=== PATIENT | female | born 1950 | race Caucasian/White ===

== ENCOUNTER → 2018-05-12 13:45 | Outpatient (CLI) | payer MEDICARE, OTHER, SELFPAY | PROVIDERS: PCP Nurse Practitioner Family; Visit Provider Nurse Practitioner Family | DX: M81.0 Age-related osteoporosis without current pathological fracture (principal); Z78.0 Asymptomatic menopausal state; F17.200 Nicotine dependence, unspecified, uncomplicated | CPT/HCPCS: 77080 ==

== ENCOUNTER → 2018-12-29 11:34 | Outpatient (CLI) | payer OTHER, MEDICARE, SELFPAY ==
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
== END ==
PROVIDERS: PCP Nurse Practitioner Family; Visit Provider Internal Medicine
DX: R51 Headache (principal)
CPT/HCPCS: 70450

== ENCOUNTER → 2019-04-08 14:28 | Outpatient (CLI) | payer MEDICARE, OTHER, SELFPAY ==
--- NOTE | 2019-04-08 | DI.MG.S_ITS ---
BILATERAL DIGITAL SCREENING MAMMOGRAM 3D/2D WITH CAD: 04/08/2019 CLINICAL: Routine screening. Comparison is made to exams dated: 02/18/2017 mammogram - [facility] and 02/16/2013 mammogram - [facility]. The tissue of both breasts is heterogeneously dense. This may lower the sensitivity of mammography. Current study was also evaluated with a Computer Aided Detection (CAD) system. No significant masses, calcifications, or other findings are seen in either breast. There has been no significant interval change. IMPRESSION: NEGATIVE There is no mammographic evidence of malignancy. A 1 year screening mammogram is recommended. This exam was interpreted at Station ID: [id number]. NOTE: For mammograms, a report in lay terms will be sent to the patient. Approximately 15% of breast malignancies will not be visualized mammographically. In the management of a palpable breast mass, a negative mammogram must not discourage biopsy of a clinically suspicious lesion. Electronically Signed By: Vincent mojica/anish:04/08/2019 23:01:38 letter sent: Normal Exam ACR BI-RADS Category 1: Negative 3341F
== END ==
PROVIDERS: PCP Nurse Practitioner Family; Visit Provider Nurse Practitioner Family
DX: Z12.31 Encounter for screening mammogram for malignant neoplasm of breast (principal); M81.0 Age-related osteoporosis without current pathological fracture; Z78.0 Asymptomatic menopausal state; F17.200 Nicotine dependence, unspecified, uncomplicated; Z82.62 Family history of osteoporosis
CPT/HCPCS: 77063; 77067; 77080

== ENCOUNTER 2020-05-27 10:37 | Inpatient (IN) | payer MEDICARE, OTHER, SELFPAY ==
[2020-05-27] VITALS (19 sets, daily range): BP systolic 102–148; BP diastolic 56–74; PULSE 71–99; RESP 16–20; TEMP 36.4–36.8; O2SAT 86–99; BMI 19.5
--- NOTE | 2020-05-27 11:07 | ED_ITS ---
HPI - General Adult General Chief complaint: Fall Stated complaint: GLF Time Seen by Provider: 05/27/20 11:07 History of Present Illness HPI narrative: 69-year-old woman with a history of osteoporosis, osteoarthritis, scoliosis and consequent difficulties with gait and mobility. She continues to smoke. She stumbled over her dog's bed this morning tripped landing on her right hip and has been unable to stand and having significant hip pain since. Brought in by medics. Right leg is slightly foreshortened and externally rotated. She did not hit her head in complains of no neck pain. She very clearly describes a mechanical fall with no preceding syncope, palpitations and no recent fevers, chills, vomiting, diarrhea. She reports her usual daily smoker's cough that has not particularly changed and no lower extremity edema or orthopnea. Related Data Allergies Allergy/AdvReac Type Severity Reaction Status Date / Time No Known Drug Allergies Allergy Verified 05/27/20 13:25 Review of Systems Review of Systems Narrative: Remainder of review of systems including constitutional, ENT, cardiovascular, respiratory, GI, , musculoskeletal, skin, neurologic and psychiatric systems reviewed and are unremarkable except as noted in HPI. Patient History Medical History Osteoarthritis Osteoporosis Scoliosis Smoker Social History Smoking Status: Current every day smoker Exam Narrative Exam Narrative: General: Frail woman in no acute distress as long as she is not moving. Any movement of the right hip causes severe pain. Able to give a complete and coherent history. HEENT: Moist mucous membranes, normal sclera with reactive pupils, Neck: No JVD, supple Respiratory: Lungs are clear to auscultation, no wheezing no rales no rhonchi. Full and symmetrical air movement Cardiac: Regular rate and rhythm no murmurs no bruits Abdomen: Soft nontender good bowel tones, no flank pain Skin: Warm and dry, no rashes Neurologic: Grossly neurologically intact with no obvious asymmetries or abnormalities Extremities: No trauma, well perfused Psych: Cooperative, appropriate insight and affect Initial Vital Signs Initial Vital Signs: Vital Signs Pulse Rate 91 H 05/27/20 10:41 Blood Pressure 130/62 05/27/20 10:41 Pulse Oximetry 95 05/27/20 10:41 Course Orders Ordered: ED Orders 05/27/20 11:13 XR hip w pel if done RT 2V Stat 05/27/20 11:56 XR chest 1V Stat 05/27/20 12:13 EKG-12 Lead Stat 05/27/20 12:40 COVID19 Stat 05/27/20 13:14 Complete Blood Count AUTO DIFF Stat Comprehensive Metabolic Panel Stat Troponin I Stat 05/27/20 14:15 CT pelvis wo con Stat Hydromorphone HCl (Hydromorphone 0.5 Mg Inj) 0.5 mg IV Q15MIN PRN PRN Reason: Pain, Last Admin: 05/27/20 15:41 Dose: 0.5 mg Documented by: Admin: 05/27/20 13:26 Dose: 0.5 mg Documented by: Admin: 05/27/20 12:31 Dose: 0.5 mg Documented by: CHANDU Sodium Chloride (Normal Saline 0.9%) 1,000 mls @ 150 mls/hr IV CONT AMY Last Infusion: 05/27/20 13:17 Dose: 150 mls/hr Documented by: Infusion: 05/27/20 12:44 Dose: 0 mls/hr Documented by: Admin: 05/27/20 12:30 Dose: 150 mls/hr Documented by: CHANDU Discontinued Medications Ondansetron HCl (Ondansetron 4 Mg/2 Ml Inj) 4 mg IV NOW ONE Stop: 05/27/20 11:56 Last Admin: 05/27/20 12:31 Dose: 4 mg Documented by: CHANDU Vital Signs Vital signs: Vital Signs - 8 hr 05/27/20 10:41 05/27/20 10:59 05/27/20 11:00 Temperature 98.3 F Pulse Rate 91 H 89 71 Respiratory Rate 16 Blood Pressure 130/62 130/62 Pulse Oximetry 95 97 98 05/27/20 11:30 05/27/20 12:00 05/27/20 12:26 Temperature Pulse Rate 77 81 80 Respiratory Rate Blood Pressure 111/58 L Pulse Oximetry 91 86 L 97 05/27/20 12:30 05/27/20 13:01 05/27/20 13:14 Temperature Pulse Rate 83 99 H 92 H Respiratory Rate Blood Pressure 102/57 L 117/68 Pulse Oximetry 99 98 98 05/27/20 13:30 05/27/20 14:00 12/13/20 14:30 Temperature Pulse Rate 89 83 78 Respiratory Rate Blood Pressure 125/59 L 112/56 L 128/69 Pulse Oximetry 98 96 97 05/27/20 15:00 Temperature Pulse Rate 90 Respiratory Rate Blood Pressure Pulse Oximetry 92 Medical Decision Making Medical Records Medical records reviewed: Yes I reviewed the patient's medical records. Lab Data Lab results reviewed: Yes I reviewed the patient's lab results. Result diagrams: 05/27/20 13:14 05/27/20 13:14 Labs: Lab Results 05/27/20 05/27/20 05/27/20 Range/Units 12:40 13:14 13:14 WBC 9.6 (4.5-11.0) X10^3/uL RBC 4.19 (4.0-5.2) X10^6/uL Hgb 14.3 (12.0-16.0) g/dL Hct 42.0 (36-46) % MCV 100.3 H (80-100) fL MCH 34.2 H (26-34) PG MCHC 34.1 (30-36) % RDW 14.8 (11.6-14.8) % Plt Count 231 (150-400) X10^3/uL Neut % (Auto) 78.2 H (50-75) % Lymph % (Auto) 10.8 L (25-40) % [place] % (Auto) 10.3 (3-14) % Eos % (Auto) 0.1 L (2-4) % Baso % (Auto) 0.6 (0-2) % Neut # (Auto) 7500 H (4410-1435) /uL Lymph # (Auto) 1000 L (3366-7334) /uL [place] # (Auto) 1000 H (0-900) /uL Eos # (Auto) 0 (0-450) /uL Baso # (Auto) 100 (0-100) /uL Sodium 132 L (137-145) mmol/L Potassium 4.1 (3.4-5.1) mmol/L Chloride 100 (98-107) mmol/L Carbon Dioxide 23 (22-32) mmol/L BUN 14 (7-17) mg/dL Creatinine 0.52 (0.52-1.04) mg/dL Estimated GFR > 60.0 (>60) mL/min BUN/Creatinine Ratio 26.9 H (6-22) Glucose 74 L (80-110) mg/dL Calcium 9.2 (8.4-10.2) mg/dL Total Bilirubin 0.5 (0.2-1.3) mg/dL AST 36 (14-36) IU/L ALT 21 (<35) IU/L Alkaline Phosphatase 82 (38-126) U/L Troponin I < 0.012 (0.01-0.034) ng/mL Total Protein 6.8 (6.3-8.2) g/dL Albumin 4.1 (3.5-5.0) g/dL Globulin 2.7 (1.7-4.1) g/dL Albumin/Globulin Ratio 1.5 (1.0-2.8) COVID-19 PCR Negative (Negative) Point of Care Testing Glucose POC 60 Point of care testing: Point of Care Testing Glucose POC 60 Imaging Data X-ray hip: Radiologist's Impression: FINDINGS: Bones: No fractures identified. No dislocations. Pelvic ring appears intact. No suspicious bony lesions. Soft tissues: The visualized bowel gas pattern is normal. No suspicious soft tissue calcifications. Suture material in the right lower quadrant. IMPRESSION: No fracture identified. No dislocation. If concern for occult fracture consider CT pelvis for further evaluation. Dictated by: Adrian Barahona M.D. on 05/27/2020 at 12:18 Chest x-ray: Radiologist's Impression: FINDINGS: Surgical changes and devices: None. Lungs and pleura: Minimal streaky opacity in the left mid lung field which is likely atelectasis or scarring. No pleural effusions or pneumothorax. Mediastinum: Mediastinal contours are tortuous, unchanged. Heart size is within normal limits. Bones and chest wall: No suspicious bony lesions. Scoliosis. Overlying soft tissues appear unremarkable. IMPRESSION: No significant acute airspace opacity identified. Dictated by: Adrian Barahona M.D. on 05/27/2020 at 12:16 CT pelvis: Radiologist's Impression: [address] [id number] Scan ReportSigned Patient: Cindy Elmore LMR#: [id number]: 3Acct:[id number]/Sex: 69 / FDate of Service: 05/27/20Loc: EDAccession Number: [id number] Procedure: CT pelvis wo con Ordering Provider: Bere Skinner MD PROCEDURE: CT PEL WO CON INDICATIONS: suspected R hip fracture TECHNIQUE: Noncontrast 3 mm axial sections acquired through the bony pelvis, with coronal and sagittal reformatting. COMPARISON: [facility], RG, CT ABDOMEN/PELVIS W/WO CONTRAST, 08/09/2001, 15:01. [facility], MR, L-SPINE WITHOUT CONTRAST, 03/27/2017, 14:07. [facility], CR, XR HIP W PEL IF DONE RT 2V, 05/27/2020, 12:39. FINDINGS: Image quality: Excellent. Bones: Bones appear osteopenic. Nondisplaced right intertrochanteric fracture. No additional fractures seen. No hip dislocation. Mild hip DJD. Soft tissues: Mild soft contusion contusion at the right trochanteric region. No large hematoma. Right hip joint effusion. Hepatic steatosis. Precaval cystic structure with rim calcification measuring 2.1 x 2 cm. Cystic structure in the right pelvic sidewall with peripheral calcification measuring 2.3 x 1.9 cm. Moderate calcified atherosclerotic plaque. Appendix is surgically absent. Diverticulosis. No free fluid. Distended urinary bladder. IMPRESSION: 1. Nondisplaced right intertrochanteric fracture. 2. Small soft tissue contusion at the right hip. 3. Indeterminate small cystic structures with rim calcification at the retroperitoneum and right pelvic sidewall. -this could be further evaluated with abdomen pelvis with IV contrast. 4. No free fluid in the pelvis. 5. Hepatic steatosis. Dictated by: Adrian Barahona M.D. on 05/27/2020 at 14:50 ECG Data Attestation: I personally reviewed and interpreted this ECG as follows: Interpretation: Sinus rhythm at a rate of 77 normal intervals normal axis No acute STT wave changes MDM Narrative Medical decision making narrative: 69-year-old woman with osteoporosis and presumed COPD with her long smoking history presents after mechanical fall jyotsna ding on her right hip with severe pain. Initial x-ray does not reveal the nondisplaced right intertrochanteric fracture that seen on CT scan and it is completely with her clinical presentation. She is COVID negative the remainder of her preop workup is unremarkable. Care is reviewed with Dr. Escobar will be the admitting doctor given the concerns for her possible postoperative pulmonary complications and frail overall medical status. Dr. Dooley is consulted and requested the patient be NPO after midnight in anticipation of probable surgical repair tomorrow Findings and plan reviewed with patient. Questions are answered. She is safe for transfer to the floor Discharge Plan Departure Patient Disposition: Admitted As Inpatient Clinical Impression: Smoker Closed hip fracture Qualifiers: Encounter type: initial encounter Laterality: right Qualified Code(s): S72.001A - Fracture of unspecified part of neck of right femur, initial encounter for closed fracture Osteoporosis Qualifiers: Osteoporosis type: unspecified Presence of current pathological fracture: with current pathological fracture Encounter type: initial encounter Qualified Code(s): M80.00XA - Age-related osteoporosis with current pathological fracture, unspecified site, initial encounter for fracture
--- NOTE | 2020-05-27 11:13 | DI.RAD.S_ITS ---
PROCEDURE: XR HIP W PEL IF DONE RT 2V INDICATIONS: fall TECHNIQUE: AP pelvis x2 with lateral view(s) of the right hip(s). COMPARISON: [facility], , CT ABDOMEN/PELVIS W/WO CONTRAST, 08/09/2001, 15:01. FINDINGS: Bones: No fractures identified. No dislocations. Pelvic ring appears intact. No suspicious bony lesions. Soft tissues: The visualized bowel gas pattern is normal. No suspicious soft tissue calcifications. Suture material in the right lower quadrant. IMPRESSION: No fracture identified. No dislocation. If concern for occult fracture consider CT pelvis for further evaluation. Dictated by: Adrian Barahona M.D. on 05/27/2020 at 12:18 Approved by: Adrian Barahona M.D. on 05/27/2020 at 12:21
--- NOTE | 2020-05-27 11:56 | DI.RAD.S_ITS ---
PROCEDURE: XR CHEST 1V INDICATIONS: preop TECHNIQUE: One view of the chest was acquired. COMPARISON: [facility], , CHEST 2 VIEW, 02/14/2014, 19:53. FINDINGS: Surgical changes and devices: None. Lungs and pleura: Minimal streaky opacity in the left mid lung field which is likely atelectasis or scarring. No pleural effusions or pneumothorax. Mediastinum: Mediastinal contours are tortuous, unchanged. Heart size is within normal limits. Bones and chest wall: No suspicious bony lesions. Scoliosis. Overlying soft tissues appear unremarkable. IMPRESSION: No significant acute airspace opacity identified. Dictated by: Adrian Barahona M.D. on 05/27/2020 at 12:16 Approved by: Adrian Barahona M.D. on 05/27/2020 at 12:18
[2020-05-27] MEDS: SODIUM CHLORIDE 0.9% 1,000 ML 150 ML IV (12:30)
[2020-05-27] MEDS: HYDROMORPHONE 0.5 MG INJ IV ×7 (12:31→20:55)
[2020-05-27] MEDS: ONDANSETRON 4 MG/2 ML INJ IV (12:31)
[2020-05-27 13:30] LABS: COVID19 -Nasal RAPID Negative (Negative)
[2020-05-27 13:35] LABS: Add Manual Diff / Slide Review NO; Basophils Absolute Auto 100 /uL (0-100); Basophils Percent Auto 0.6 % (0-2); Eosinophils Absolute Auto 0 /uL (0-450); Eosinophils Percent Auto 0.1 % (2-4); Hemoglobin 14.3 g/dL (12.0-16.0); Lymphocytes Absolute Auto 1000 /uL (1100-4500); Lymphocytes Percent Auto 10.8 % (25-40); Mean Corpuscular HGB Conc 34.1 % (30-36); Mean Corpuscular Hemoglobin 34.2 PG (26-34); Mean Corpuscular Volume 100.3 fL (80-100); Monocytes Absolute Auto 1000 /uL (0-900); Monocytes Percent Auto 10.3 % (3-14); Neutrophils Absolute Auto 7500 /uL (1500-7000); Neutrophils Percent Auto 78.2 % (50-75); Platelet Count 231 X10^3/uL (150-400); Red Blood Cell Count 4.19 X10^6/uL (4.0-5.2); Red Cell Distribution Width 14.8 % (11.6-14.8); White Blood Cell Count 9.6 X10^3/uL (4.5-11.0)
[2020-05-27 13:49] LABS: Alanine Aminotransferase 21 IU/L (<35); Albumin 4.1 g/dL (3.5-5.0); Albumin Globulin Ratio 1.5 (1.0-2.8); Alkaline Phosphatase 82 U/L (38-126); Aspartate Aminotransferase 36 IU/L (14-36); BUN Creatinine Ratio 26.9 (6-22); Bilirubin Total 0.5 mg/dL (0.2-1.3); Blood Urea Nitrogen 14 mg/dL (7-17); Calcium 9.2 mg/dL (8.4-10.2); Carbon Dioxide 23 mmol/L (22-32); Chloride 100 mmol/L (98-107); Estimated Glomerular Filt Rate > 60.0 mL/min (>60); Globulin 2.7 g/dL (1.7-4.1); Glucose 74 mg/dL (80-110); HEMOLYSIS < 15 (0-50); Potassium 4.1 mmol/L (3.4-5.1); Sodium 132 mmol/L (137-145); Total Protein 6.8 g/dL (6.3-8.2)
[2020-05-27 14:00] LABS: Troponin I < 0.012 ng/mL (0.01-0.034)
--- NOTE | 2020-05-27 14:15 | DI.CT.S_ITS ---
PROCEDURE: CT PEL WO CON INDICATIONS: suspected R hip fracture TECHNIQUE: Noncontrast 3 mm axial sections acquired through the bony pelvis, with coronal and sagittal reformatting. COMPARISON: [facility], RG, CT ABDOMEN/PELVIS W/WO CONTRAST, 08/09/2001, 15:01. [facility], MR, L-SPINE WITHOUT CONTRAST, 03/27/2017, 14:07. [facility], CR, XR HIP W PEL IF DONE RT 2V, 05/27/2020, 12:39. FINDINGS: Image quality: Excellent. Bones: Bones appear osteopenic. Nondisplaced right intertrochanteric fracture. No additional fractures seen. No hip dislocation. Mild hip DJD. Soft tissues: Mild soft contusion contusion at the right trochanteric region. No large hematoma. Right hip joint effusion. Hepatic steatosis. Precaval cystic structure with rim calcification measuring 2.1 x 2 cm. Cystic structure in the right pelvic sidewall with peripheral calcification measuring 2.3 x 1.9 cm. Moderate calcified atherosclerotic plaque. Appendix is surgically absent. Diverticulosis. No free fluid. Distended urinary bladder. IMPRESSION: 1. Nondisplaced right intertrochanteric fracture. 2. Small soft tissue contusion at the right hip. 3. Indeterminate small cystic structures with rim calcification at the retroperitoneum and right pelvic sidewall. -this could be further evaluated with abdomen pelvis with IV contrast. 4. No free fluid in the pelvis. 5. Hepatic steatosis. Dictated by: Adrian Barahona M.D. on 05/27/2020 at 14:50 Approved by: Adrian Barahona M.D. on 05/27/2020 at 15:05
[2020-05-27] MEDS: hydrOXYzine pamoate 25 MG CAPSULE PO (17:38)
--- NOTE | 2020-05-27 17:39 | PM.CN ---
History of Present Illness Consult details Date Patient Seen: 05/27/20 Time Patient Seen: 17:39 Chief complaint: GLF Reason for consult: Right hip fracture Requesting provider: Bere Skinner Narrative: Cindy is a 69-year-old female with a history of a tobacco and cannabis use, chronic low back pain, osteoporosis presents with right hip pain. She tripped over her dog's bed this evening and fell onto her right hip. She had pain and was unable to weightbear. She was brought to the emergency room by her neighbor who is now taking care of her pets. She does not have any all 1 that lives at home but has close neighbors. She denies any pain other than right from her right hip. She states this is sharp and has spasms. States it is severely painful. She denies any numbness or tingling denies any loss of consciousness denies any fevers chills nausea or vomiting. Denies any medication allergies. Does states she has a history of osteoporosis and was treated with what sounds like a bisphosphonate on a weekly basis in the past but has been off of this for a while. She also takes losartan for high blood pressure. She smokes approximately 1 pack per day. Denies any history of broken bones. States she may have had a surgery when she was young for her abdomen. Meds Home Medications and Allergies Allergies Allergy/AdvReac Type Severity Reaction Status Date / Time No Known Drug Allergies Allergy Verified 05/27/20 13:25 Review of Systems Constitutional Constitutional: Denies chills, Denies fever(s) and Denies frequent falls Eyes Comments: Requires glasses. Does not have them with her. Cardiovascular Cardiovascular: Reports system reviewed and no additional complaints, except as documented Respiratory Comments: Denies shortness of breath, denies chest pain Genitourinary Comments: History of urinary tract problems 1 child. Nothing recent Musculoskeletal Comments: Endorses right hip pain per HPI Neurologic Neurologic: Denies frequent falls Comments: Denies numbness or tingling. Hematologic/Lymphatic Comments: No history of easy bruising. Denies any history of blood clots or bleeding problems Allergic/Immunologic Comments: Denies significant medication allergies Exam Vital Signs (past 8 hours): - 05/27/20 10:41 05/27/20 10:59 05/27/20 11:00 Temperature 98.3 F Pulse Rate 91 H 89 71 Respiratory Rate 16 Blood Pressure 130/62 130/62 Pulse Oximetry 95 97 98 05/27/20 11:30 05/27/20 12:00 05/27/20 12:26 Temperature Pulse Rate 77 81 80 Respiratory Rate Blood Pressure 111/58 L Pulse Oximetry 91 86 L 97 05/27/20 12:30 05/27/20 13:01 05/27/20 13:14 Temperature Pulse Rate 83 99 H 92 H Respiratory Rate Blood Pressure 102/57 L 117/68 Pulse Oximetry 99 98 98 05/27/20 13:30 05/27/20 14:00 05/27/20 14:30 Temperature Pulse Rate 89 83 78 Respiratory Rate Blood Pressure 125/59 L 112/56 L 128/69 Pulse Oximetry 98 96 97 05/27/20 15:00 05/27/20 15:10 05/27/20 15:30 Temperature Pulse Rate 90 87 72 Respiratory Rate Blood Pressure 122/65 134/61 Pulse Oximetry 92 94 96 05/27/20 16:00 05/27/20 16:30 05/27/20 17:00 Temperature Pulse Rate 88 72 82 Respiratory Rate Blood Pressure 141/64 H 132/59 L 148/74 H Pulse Oximetry 96 93 94 Oxygen Delivery Method Nasal Cannula Oxygen Flow Rate 2 Narrative Exam Narrative: General exam is alert and oriented female examined in the ER on the stretcher she is sitting up. She is oriented to person place and time. Grimaces in pain with spasms in her hip but is oriented and appropriate HEENT exam normocephalic atraumatic Respiratory exam unlabored on 2 L nasal cannula. Grossly clear to auscultation. Does have some intermittent desats to about 88 on the monitoring. Likely underlying issues with chronic tobacco use CV exam regular rate and rhythm Abdomen soft. : No [place] Musculoskeletal exam: Moving bilateral upper extremities full range of motion no deficits or tenderness to palpation. No wounds. Good strength. Left lower extremity atraumatic normal alignment demonstrates 5/5 dorsiflexion plantar flexion. They are dry skin over the distal hyde and no open wounds calf is soft Right lower extremity falling in a flexed posture leaning against left leg for support. Intermittently grass at hip with a spasm of pain. But no gross deformity. Is able to demonstrate dorsiflexion plantar flexion of the ankle. Brisk capillary refill. Palpable dorsalis pedis pulse. Similar of dry skin over the anterior hyde. No wounds on the hip. Does endorse groin pain. Additional manipulative exam is deferred due to known fracture and patient pain. Calf is soft on the right. Objective Imaging Right hip x-ray: My impression: Right hip intertrochanteric fracture. Nondisplaced Labs Result Diagrams: 05/27/20 13:14 05/27/20 13:14 Labs: Laboratory Results - last 24 hr 05/27/20 05/27/20 05/27/20 12:40 13:14 13:14 WBC 9.6 RBC 4.19 Hgb 14.3 Hct 42.0 MCV 100.3 H MCH 34.2 H MCHC 34.1 RDW 14.8 Plt Count 231 Neut % (Auto) 78.2 H Lymph % (Auto) 10.8 L [place] % (Auto) 10.3 Eos % (Auto) 0.1 L Baso % (Auto) 0.6 Neut # (Auto) 7500 H Lymph # (Auto) 1000 L [place] # (Auto) 1000 H Eos # (Auto) 0 Baso # (Auto) 100 Sodium 132 L Potassium 4.1 Chloride 100 Carbon Dioxide 23 BUN 14 Creatinine 0.52 Estimated GFR > 60.0 BUN/Creatinine Ratio 26.9 H Glucose 74 L Calcium 9.2 Total Bilirubin 0.5 AST 36 ALT 21 Alkaline Phosphatase 82 Troponin I < 0.012 Total Protein 6.8 Albumin 4.1 Globulin 2.7 Albumin/Globulin Ratio 1.5 COVID-19 PCR Negative Assessment & Plan Assessment and plan (1) Closed hip fracture: Qualifiers: Encounter type: initial encounter Laterality: right Qualified Code(s): S72.001A - Fracture of unspecified part of neck of right femur, initial encounter for closed fracture Status: Acute (2) Smoker: Status: Acute (3) Osteoporosis: Qualifiers: Encounter type: initial encounter Osteoporosis type: unspecified Presence of current pathological fracture: with current pathological fracture Qualified Code(s): M80.00XA - Age-related osteoporosis with current pathological fracture, unspecified site, initial encounter for fracture Status: Acute Assessment & Plan narrative: Patient is a 69-year-old female with a right nondisplaced intertrochanteric hip fracture. This represents a osteoporotic hip fracture from ground level fall. She has a history of osteoporosis. Like she was previously on bisphosphonates but has not been for some time. I discussed the importance of bone health. I did discuss that patients are often given breaks off of the bisphosphonates if they have been on them for several years. If she has not had a DEXA scan in the last year or 2 recommend outpatient DEXA scan and consideration for restart of osteoporotic medication. While in the hospital can start vitamin-D and calcium supplementation. I also counseled the patient extensively on her tobacco use and it is contributing factors to poor bone healing poor bone quality risks for wound and bone healing complications and overall health and long condition. We discussed that even if she can cut back or stop smoking for few weeks surrounding the time of her injury this will help with her healing although certainly on a longer-term basis is best to help with her bone quality and long function. Plan for her right hip would be fixation. Discussed treatment for hip fractures displaced or not displaced is operative to prevent prolonged immobility and dysfunction. Discussed options for treatment. I recommend a intramedullary nail for stability in this osteoporotic patient. Discussed risks for fracture and hardware collapse, cutout, nonunion, malunion infection blood clot and pulmonary embolism. Also discussed tobacco in the role of blood clots. Discussed that she will need DVT prophylaxis postoperatively. Four weeks Lovenox postop. We went over her of surgical consent and indications in great detail to night. Plan for operative fixation tomorrow. COVID test is negative. Will be NPO at midnight. Pain control on the floor tonight. COVID-19 COVID-19 status: Negative Result date/Date tested (Pos, Neg/Pending): 05/27/20 Time Spent With Patient Time with patient: less than 15 minutes
[2020-05-27] MEDS: OXYCODONE IR 5 MG TABLET PO (19:33)
[2020-05-27] MEDS: SODIUM CHLORIDE 0.9% 1,000 ML 125 ML IV ×2 (20:30→21:14)
[2020-05-27 20:40] LABS: Add Manual Diff / Slide Review NO; Basophils Absolute Auto 100 /uL (0-100); Basophils Percent Auto 0.7 % (0-2); Eosinophils Absolute Auto 100 /uL (0-450); Eosinophils Percent Auto 0.7 % (2-4); Hematocrit 39.6 % (36-46); Hemoglobin 13.5 g/dL (12.0-16.0); Lymphocytes Absolute Auto 1000 /uL (1100-4500); Lymphocytes Percent Auto 11.9 % (25-40); Mean Corpuscular Hemoglobin 33.7 PG (26-34); Mean Corpuscular Volume 99.2 fL (80-100); Monocytes Absolute Auto 1700 /uL (0-900); Monocytes Percent Auto 20.1 % (3-14); Neutrophils Absolute Auto 5500 /uL (1500-7000); Neutrophils Percent Auto 66.6 % (50-75); Platelet Count 228 X10^3/uL (150-400); Red Blood Cell Count 3.99 X10^6/uL (4.0-5.2); Red Cell Distribution Width 14.6 % (11.6-14.8); White Blood Cell Count 8.2 X10^3/uL (4.5-11.0)
[2020-05-27 20:52] LABS: BUN Creatinine Ratio 30.2 (6-22); Blood Urea Nitrogen 13 mg/dL (7-17); Carbon Dioxide 28 mmol/L (22-32); Chloride 100 mmol/L (98-107); Estimated Glomerular Filt Rate > 60.0 mL/min (>60); Glucose 116 mg/dL (80-110); HEMOLYSIS < 15 (0-50); Potassium 4.3 mmol/L (3.4-5.1); Sodium 132 mmol/L (137-145)
[2020-05-27] MEDS: LORazepam 2 MG/ML INJ 0.5 MG IV (22:00)
[2020-05-28] VITALS (21 sets, daily range): BP systolic 95–174; BP diastolic 52–94; PULSE 80–100; RESP 12–92; TEMP 36.5–37.3; O2SAT 14–97; BMI 19.5
--- NOTE | 2020-05-28 | DI.RAD.S_ITS ---
PROCEDURE: XR HIP W PEL IF DONE RT 2V INDICATIONS: RIGHT HIP ORIF TECHNIQUE: 6 intraoperative view(s) of the hip acquired. COMPARISON: [facility], , XR HIP W PEL IF DONE RT 2V, 05/27/2020, 12:39. FINDINGS: Bones: Intraoperative views demonstrate ORIF of the right hip and femoral shaft. Soft tissues: Overlying postoperative changes are noted. No suspicious soft tissue densities. IMPRESSION: Intraoperative images obtained during right hip ORIF. Dictated by: Petty Angeles M.D. on 05/28/2020 at 19:05 Approved by: Petty Angeles M.D. on 05/28/2020 at 19:06
[2020-05-28] MEDS: TRAMADOL 50 MG TABLET PO ×2 (00:31→19:25)
[2020-05-28] MEDS: LORazepam 2 MG/ML INJ 0.5 MG IV (02:16)
[2020-05-28] MEDS: SODIUM CHLORIDE 0.9% 1,000 ML 125 ML IV ×2 (04:16→13:28)
--- NOTE | 2020-05-28 06:07 | DI.RAD.S_ITS ---
PROCEDURE: XR CHEST 1V INDICATIONS: rule out PE TECHNIQUE: One view of the chest was acquired. COMPARISON: [facility], , XR CHEST 1V, 05/27/2020, 12:39. FINDINGS: Surgical changes and devices: None. Lungs and pleura: Focal opacity noted in the left lung base which could represent atelectasis versus pneumonia.. No pleural effusions or pneumothorax. Mediastinum: Mediastinal contours appear normal. Heart size is normal. Bones and chest wall: No suspicious bony lesions. Overlying soft tissues appear unremarkable. Severe convex right thoracic spine scoliosis is stable. IMPRESSION: Focal opacity in the left lung base concerning for atelectasis versus pneumonia. Pulmonary embolus cannot be excluded by plain film radiograph; recommend CT angiogram of the chest (PE protocol) for further evaluation. Dictated by: Michelle Shaffer MD, PhD on 05/28/2020 at 8:37 Approved by: Michelle Shaffer MD, PhD on 05/28/2020 at 8:39
--- NOTE | 2020-05-28 06:13 | PC.NURSE ---
pt vital signs were 103/58, O2 sat was 88-90% on 5L, called RT to reevaluate patient and RT and this pattern chart writer is concerned that pt might have PE. This pattern chart writer paged Dr. Armijo and notified of patient's situation. As per MD lab draw of BNP, BMP stat, ABG stat, and chest Xray 1V stat. Notified lab for new orders as well as RT and imaging.
[2020-05-28 06:20] LABS: HCO3 ABG 27 mmol/L (22-26); PCO2 ABG 48.7 mmHg (35-45); PO2 ABG 56 mmHg (80-100); pH ABG 7.35 (7.35-7.45)
[2020-05-28 06:21] LABS: Oxygen Saturation ABG 87 % (95-100); TCO2 ABG 28 mmol/L (21-31)
[2020-05-28 06:22] LABS: Fractionated Inspired Oxygen 42
[2020-05-28 06:37] LABS: BUN Creatinine Ratio 25.6 (6-22); Blood Urea Nitrogen 11 mg/dL (7-17); Calcium 8.9 mg/dL (8.4-10.2); Carbon Dioxide 31 mmol/L (22-32); Chloride 101 mmol/L (98-107); Estimated Glomerular Filt Rate > 60.0 mL/min (>60); Glucose 91 mg/dL (80-110); HEMOLYSIS < 15 (0-50); Potassium 4.4 mmol/L (3.4-5.1); Sodium 133 mmol/L (137-145)
[2020-05-28 06:46] LABS: NT-proBNP (BNP-Adult 18+) 669 pg/mL (<125)
--- NOTE | 2020-05-28 07:52 | PC.NURSE ---
Addendum entered by Coco Shin R.N. 05/28/20 11:41: Patient reports pain to right leg 6/10, reports pain is better. Given 0.5mg IVP dilaudid and 25mg vistaril at 1000 Original Note: Patient alert, oriented CIWA 0, repositioned in bed for comfort. PPP RLE, patient remains NPO, alarm on seizure precautions in place.
--- NOTE | 2020-05-28 08:02 | P.HP_ITS ---
History of Present Illness History of Present Illness Date Patient Seen: 05/28/20 Time Patient Seen: 07:03 Date of Onset of Symptoms: 05/27/20 Chief complaint: GLF Narrative: This is a 69-year-old female who was previously followed by our nurse practitioner and infrequently comes in care. The patient was at her home and tripped over her dog bed and fell on her right side fracturing her right hip. She has a nondisplaced trochanteric fracture of the right hip and is due to go to the ER for surgical repair this morning. The patient denies any presyncope or syncope. This was clearly a mechanical fall. She did not hit her head. She did not have loss of consciousness and denies any other injuries. She does have a history of chronic back pain and describes this as as severe pain. I was called early this morning stating that her oxygen level had gone down to 88%. It was gradually increased from 2 L nasal cannula to 5 L nasal cannula. The patient was awakened and now her O2 sats on 3 L nasal cannula are 93-95%. A BNP was done that was slightly elevated. An ABG was done which correlated with 88% saturation. A chest x-ray is pending. It is suspected that this is related to chronic lung disease due to chronic smoking. Past medical history: 1. Osteoporosis. Previously on bisphosphonates but not currently 2. Tobacco abuse, still smoking a half to a pack a day. 3. History of alcohol abuse it states in her charge that she has been in recovery since 2001 but she does drink wine. 4. Hypertension 5. Depression 6. COPD 7. Elevated ferritin with the negative hemochromatosis workup in 2017 8. Eczema 9. Hyperlipidemia 10. Scoliosis and chronic back pain 11. Peritonitis, postop previously Patient takes gabapentin and losartan/hydrochlorothiazide as an outpatient, as well as tramadol Allergies: No known drug allergies Past surgical history: Trigger finger repair in 2004 Two thousand ten abdominal wall hernia repair Two thousand one bowel obstruction with surgical intervention unclear if she had a resection Social history: Patient lives alone in an a [facility] Patient is single Patient has a stepdaughter but no other relatives Parents and siblings have Family history: Father with alcoholism, hypertension and dementia Mother with alcoholism, hypertension and dementia Siblings with seizure disorder, depression, stroke, alcohol abuse; sister with addiction problems; sister from a stroke; brother with prostate cancer A health-related behavior Patient drinks wine unclear if this is on a nightly basis Patient smokes a half a pack to a pack is here today Patient does smoke marijuana products No other illicit drugs Review of systems: COVID-19 test was negative Denies fever, cough, shortness of breath, chest pain Patient denies any decreased exercise tolerance but she does not exercise on a regular basis. Patient denies any syncope or presyncope Patient denies any bright red blood per rectum, black tarry stools or hematochezia, no abdominal pain No rashes Patient History Medical History Osteoarthritis Osteoporosis Scoliosis Smoker Family & Social History Social History: household members none Prior Living Arrangements House Safety & Behavioral: Feels Safe in Current Yes Environment Been Physically Hurt or No Threatened By a Person Suicidal Ideation Description None Suicide Plan Description No Plan Tobacco & Substance use: Tobacco type cigarettes Smoking Status Current every day smoker Smoking packs per day 1 alcohol intake current alcohol intake frequency 3 or more drinks per day Substance Use Type marijuana Meds Home Medications and Allergies Home Medications Medication Instructions Recorded Confirmed Type gabapentin 900 mg PO TID 05/27/20 05/27/20 History losartan-hydrochlorothiazide 50 tab PO DAILY 05/27/20 05/27/20 History tramadol 50 mg PO BID PRN 05/27/20 05/27/20 History Allergies Allergy/AdvReac Type Severity Reaction Status Date / Time No Known Drug Allergies Allergy Verified 05/27/20 13:25 Exam Vital Signs (past 8 hours): - 05/28/20 04:55 05/28/20 07:30 Temperature 98.0 F 98.6 F Pulse Rate 94 H 85 Respiratory Rate 16 16 Blood Pressure 103/58 L 138/80 Pulse Oximetry 90 L 94 Oxygen Delivery Method Nasal Cannula Oxygen Flow Rate 2 Narrative Exam Narrative: Afebrile vital signs are stable HEENT: Dry mucous membranes Neck: Supple without adenopathy or thyromegaly or bruits Chest: Clear to auscultation with prolonged expiratory phase but no wheezes rhonchi or crackles Cor: Regular rate and rhythm without any murmur, distant S1-S2 Extremities: No edema pulses intact; tenderness over right hip Abdomen: Positive bowel sounds, soft, nontender, nondistended, no hepatosplenomegaly Neurologic exam nonfocal. Objective Labs Result Diagrams: 05/27/20 20:30 05/28/20 06:15 Labs: Laboratory Results - last 24 hr 05/27/20 05/27/20 05/27/20 12:40 13:14 13:14 WBC 9.6 RBC 4.19 Hgb 14.3 Hct 42.0 MCV 100.3 H MCH 34.2 H MCHC 34.1 RDW 14.8 Plt Count 231 Neut % (Auto) 78.2 H Lymph % (Auto) 10.8 L [place] % (Auto) 10.3 Eos % (Auto) 0.1 L Baso % (Auto) 0.6 Neut # (Auto) 7500 H Lymph # (Auto) 1000 L [place] # (Auto) 1000 H Eos # (Auto) 0 Baso # (Auto) 100 ABG pH ABG pCO2 ABG pO2 ABG HCO3 ABG Total CO2 ABG O2 Saturation ABG Base Excess FiO2 Sodium 132 L Potassium 4.1 Chloride 100 Carbon Dioxide 23 BUN 14 Creatinine 0.52 Estimated GFR > 60.0 BUN/Creatinine Ratio 26.9 H Glucose 74 L Calcium 9.2 Total Bilirubin 0.5 AST 36 ALT 21 Alkaline Phosphatase 82 Troponin I < 0.012 NT-Pro-B Natriuret Pep Total Protein 6.8 Albumin 4.1 Globulin 2.7 Albumin/Globulin Ratio 1.5 COVID-19 PCR Negative 05/27/20 05/27/20 05/28/20 20:30 20:30 06:14 WBC 8.2 RBC 3.99 L Hgb 13.5 Hct 39.6 MCV 99.2 MCH 33.7 MCHC 34.0 RDW 14.6 Plt Count 228 Neut % (Auto) 66.6 Lymph % (Auto) 11.9 L [place] % (Auto) 20.1 H Eos % (Auto) 0.7 L Baso % (Auto) 0.7 Neut # (Auto) 5500 Lymph # (Auto) 1000 L [place] # (Auto) 1700 H Eos # (Auto) 100 Baso # (Auto) 100 ABG pH 7.35 ABG pCO2 48.7 H ABG pO2 56 L ABG HCO3 27 H ABG Total CO2 28 ABG O2 Saturation 87 L ABG Base Excess 1.0 FiO2 42 Sodium 132 L Potassium 4.3 Chloride 100 Carbon Dioxide 28 BUN 13 Creatinine 0.43 L Estimated GFR > 60.0 BUN/Creatinine Ratio 30.2 H Glucose 116 H Calcium 9.0 Total Bilirubin AST ALT Alkaline Phosphatase Troponin I NT-Pro-B Natriuret Pep Total Protein Albumin Globulin Albumin/Globulin Ratio COVID-19 PCR 05/28/20 06:15 WBC RBC Hgb Hct MCV MCH MCHC RDW Plt Count Neut % (Auto) Lymph % (Auto) [place] % (Auto) Eos % (Auto) Baso % (Auto) Neut # (Auto) Lymph # (Auto) [place] # (Auto) Eos # (Auto) Baso # (Auto) ABG pH ABG pCO2 ABG pO2 ABG HCO3 ABG Total CO2 ABG O2 Saturation ABG Base Excess FiO2 Sodium 133 L Potassium 4.4 Chloride 101 Carbon Dioxide 31 BUN 11 Creatinine 0.43 L Estimated GFR > 60.0 BUN/Creatinine Ratio 25.6 H Glucose 91 Calcium 8.9 Total Bilirubin AST ALT Alkaline Phosphatase Troponin I NT-Pro-B Natriuret Pep 669 H Total Protein Albumin Globulin Albumin/Globulin Ratio COVID-19 PCR Assessment & Plan Assessment & Plan narrative: 40 minutes is spent with patient 69-year-old female with a nondisplaced right trochanteric hip fracture, admitted for the same Plan: Will proceed with surgery per Orthopedics and pain control per Orthopedics Assessment 2. Hypoxemia suspect underlying chronic lung disease from smoking tobacco products, exacerbated by sleeping and pain medications. BNP is slightly elevated but I do not think this represents heart failure. We will continue to monitor. Will give supplemental oxygen. I do not see evidence of infection. At this point I do not see any contraindication to proceeding with surgery. We will continue to monitor closely for infection. Assessment 3. Hypertension currently with normal to low blood pressures Plan: Will hold losartan hydrochlorothiazide at this time Assessment refer for scoliosis with chronic back pain on gabapentin and tramadol Plan: Will hold these for now S patient is being treated with IV pain m edications. Assessment 5. Osteoporosis with osteoporotic fracture Plan: Discussed smoking cessation and need for abstinence from alcohol as well as bone density test as outpatient and follow-up to discuss bisphosphonate Assessment 6. Tobacco abuse Plan recommended smoking cessation Assessment 7. History of alcohol abuse in recovery but now drinking some wine Plan: Will monitor for withdrawal and discussed with patient that is important that she let us know how much alcohol she is taking in because of the risk of withdrawal on with this and what happens and how we need to treat this. Assessment 8. GI prophylaxis Plan: Protonix Code status is full code Quality VTE Deep Vein Thrombosis/Pulmonary Embolism Present on Admission: No
[2020-05-28] MEDS: GABAPENTIN 300 MG CAPSULE PO (08:24)
[2020-05-28] MEDS: ACETAMINOPHEN 325 MG TABLET 975 MG PO ×2 (08:24→21:04)
[2020-05-28] MEDS: HYDROMORPHONE 0.5 MG INJ IV ×3 (08:27→13:28)
[2020-05-28] MEDS: ONDANSETRON 4 MG/2 ML INJ IV (08:34)
[2020-05-28] MEDS: hydrOXYzine pamoate 25 MG CAPSULE PO ×3 (09:59→19:25)
[2020-05-28] MEDS: GABAPENTIN 600 MG TABLET PO (09:59)
--- NOTE | 2020-05-28 10:49 | DI.CT.S_ITS ---
PROCEDURE: CT ANGIO CHEST PE PROTOCOL INDICATIONS: rule out PE TECHNIQUE: After the administration of intravenous contrast, 2 mm thick sections acquired from the pulmonary apices to the posterior costophrenic angles. 3-dimensional maximum intensity projection (MIP) coronal and sagittal reformats were then acquired through the thorax. For radiation dose reduction, the following was used: automated exposure control, adjustment of mA and/or kV according to patient size. COMPARISON: [facility], CT, CHEST ANGIO-PE, 01/07/2011, 17:13. [facility], CR, XR CHEST 1V, 05/28/2020, 6:12. [facility], CT, CT PEL WO CON, 05/27/2020, 14:42. FINDINGS: Image quality: Excellent. Pulmonary arteries: Pulmonary arteries are normal in size, and demonstrate no intraluminal filling defects to suggest central pulmonary embolism. Lungs and pleura: There are right middle lobe and bilateral lower lobe consolidations or atelectasis. Trace right pleural effusion. No pneumothorax. A 7 mm subpleural nodule is present in the right middle lobe (series 6, image 212), unchanged since 01/07/2011, consistent with a benign nodule. There is bilateral bronchial wall thickening, worse in lower lobes and right middle lobe consistent with bronchitis. Filling defects in the left lower lobe and right middle lobe bronchi may be secondary to mucous pluggs. Mediastinum: Heart size is normal, without pericardial effusion. No mediastinal or hilar adenopathy. Thoracic aorta is normal in caliber and enhancement. Esophagus is normal in caliber, without hiatal hernia. Bones and chest wall: Severe scoliosis. No suspicious bony lesions. Ribs and thoracic spine appear intact throughout. There is a 7 mm low-density right thyroid nodule. No axillary or supraclavicular adenopathy. Abdomen: Liver demonstrates nodular contour suggesting cirrhosis. Visualized upper abdominal solid organs appear normal in the early arterial phase of enhancement. IMPRESSION: 1. No findings to suggest central pulmonary embolism. 2. Right middle lobe and bilateral lower lobe pneumonia or atelectasis. There is trace right pleural effusion. 3. Bilateral bronchial wall thickening consistent with bronchitis. Filling defects in the left lower lobe and right middle lobe bronchi are likely secondary to mucous pluggs. Follow-up imaging is suggested . 4. Severe scoliosis. Dictated by: Warren Jerry M.D. on 05/28/2020 at 10:35 Approved by: Warren Jerry M.D. on 05/28/2020 at 11:09
--- NOTE | 2020-05-28 13:27 | CM.DANOTE ---
DCP: Case received, EMR reviewed and met with patient. Introduced self and role. Was able to obtain information from patient regarding her baseline activity status and living situation prior to hospitalization. DCP assessment completed with information currently available. Patient is a 69 year old female who admitted yesterday afternoon to the care of the hospitalist team. PCP: RONALDO Silva. Payer: confirmed: Medicare/[facility] Patient came to the hospital via ambulance secondary to a ground level fall. Patient had fallen at home, she tripped over her dog bed in the house resulting with nondisplaced trochanteric fracture. Patient is supposed to have surgery this pm. Met with patient in her room. She was laying in bed, alert and oriented, pleasant. She resides in [place] alone. She indicated that she has no immediate family members, but has a neighbor who lives next door, by the name of Brit. Patient indicated that she does not drive, and relies on the taxi service. She stated that her neighbor is also helpful if she needs anything. Patient stated that she is independent at baseline, as far as her mobility. She does have a cane for home use, which she will use if she goes out to the mailbox. Brought her in a Medicare Choice List, in case she needs nursing home rehab, and sent initial referral to Kirstie at [facility]. Patient is hoping that she can go home with home health, if possible. Let her know that will see how she does with P.T. after surgery. Kirstie at [facility] reviewed. Since patient is a smoker, will need to know that smoking is not allowed. Also, Kirstie stated that she looked at insurance, and [employer] may no longer be supplement, so if she rehabs for over 21 days, it will cost approximately 176.00 per day. Encouraged patient to review facilities as well. P: DCP to continue to follow. Will see how she does with P.T after surgery. Magaly Mcbride RN/Deputy Editor In Chief
[2020-05-28] MEDS: CEFTRIAXONE 1 GM/50 ML FROZ.PIGGY IV (13:28)
[2020-05-28] MEDS: AZITHROMYCIN 500 MG in DEXTROSE 5% IN WATER 250 ML IV (13:56)
--- NOTE | 2020-05-28 15:48 | PC.NURSE ---
Pt resting quietly at this time. IVF infusing into left wrist area via pump as per orders. Lungs clear/diminished, SpO2 98% 2L Pt awaiting surgery at approximately 1700 Call light w/in reach, bed alarm on for pt safety.
[2020-05-28] MEDS: LACTATED RINGERS 1,000 ML 84 ML IV (17:14)
--- NOTE | 2020-05-28 17:17 | PM.PREOP ---
Pre-operative Note COVID-19 COVID-19 status: Negative Interval Note History & Physical reviewed/Exam performed by Physician: Yes Changes to H&P: No
[2020-05-28] MEDS: CEFAZOLIN 1 GM/50 ML FROZ.PIGGY IV (17:20)
--- NOTE | 2020-05-28 17:58 | SUR.OPER ---
Supine, head on pillow, torso on pink pad positioner. Iliac crest at flex of foot end of table. Gel roll under operative hip. Both arms secured on arm boards <90 degrees abduction.
[2020-05-28] MEDS: BUPIVACAINE 0.5% W/ EPI (PF) 30 ML VIAL INJ (18:05)
[2020-05-28] MEDS: OXYCODONE/ACETAMINOPHEN 5/325 TABLET 1 TAB PO (19:11)
--- NOTE | 2020-05-28 19:23 | P.OP_ITS ---
Operative Date/Time/Diagnoses Date of procedure: 05/28/20 Time of procedure: 17:20 Pre-op diagnosis: 1. Right intertrochanteric fracture Post-op diagnosis: same Procedure & Clinicians Procedure: Intramedullary nail right intertrochanteric hip fracture cpt code 31244 Same procedure as scheduled: Yes Indications: Patient is a 69-year-old female with a history of osteoporosis that fell in her home. She had a ground level fall she fell directly on her right hip she was unable to ambulate afterward. She is found to have a nondisplaced intertrochanteric fracture in the ER. She is indicated for operative fixation to prevent displacement and allow full weight-bearing. The risks and benefits of the procedure have been discussed with the patient even opportunity to ask questions. The risks of surgery include but are not limited to infection, malunion, nonunion, persistence of pain, damage to nerves and blood vessels, posttraumatic arthritis, DVT, PE, cardiopulmonary complications and . The patient expressed a thorough understanding of the risks and benefits of surgery and has elected to proceed. Consent was signed. Surgeon: Franci Dooley Click Yes if Unassisted: Yes Anesthesia Type: General and Local Operative Notes Findings: Nondisplaced intertrochanteric fracture, right, comminution of the greater troch Closure Type: primary Specimen(s): none sent Prosthetic devices, grafts, tissues, transplants, or devices: Lopes and Nephew short InterTAN nail 11.5 x 18. 1985 interlocking lag and compression screws. 32.5 locking distal screw Estimated Blood Loss (mL): 50 Blood products transfused: none Tourniquet time (min): 0 Procedure in detail: Procedure cephalomedullary nail intertrochanteric hip fracture the CPT code 92824 Side: Right Implant Lopes and Nephew 11.5 x 18 cm cephalomedullary nail intertan Procedure: The patient was seen and the site of surgery was marked in the preoperative area. This was the right hip. Patient was brought to the op erating room and placed on the operative table and general anesthesia was administered. The patient was positioned on the fracture table in standard fashion with a well-padded boots and a padded peroneal post. A formal time-out was called to confirm the patient's side and site of surgery administration of preoperative antibiotics. All were in agreement. The operative leg was evaluated under fluoroscopic guidance the fracture remained nondisplaced in anatomic alignment. At this point the operative extremity was prepped and draped in the standard sterile manner. The starting point was jordan ed out using fluoroscopic guidance and marked on the skin. A guidewire was placed percutaneously and the starting point was obtained. Incision was made over the guidewire. An opening drill was inserted to the level of the lesser trochanter. The opening Reamer and guidewire were then removed. An 18 cm cephalomedullary nail was selected. The 11.5 x 18 cm nail was then slid into the canal. The nail was advanced to the proper depth and rotation. The guide for the cephalomedullary screw was then inserted into the external handle. An incision was made and the guide was placed down to the bone. A guidewire was placed to the proper depth into the femoral head and this was confirmed on AP and lateral imaging. The tip apex distance was evaluated and appropriate. Next the outer cortex was drilled for the interlocking screw and the anti rotation bar was placed. The cephalomedullary jewelry screw length was then measured off the drill. A 90 mm lag screw was selected and the corresponding interlocking compression screw. A guidewire was then over drilled and the lag screw placed. The anti rotation bar was removed and then the locking compression screws were placed and confirmed on biplanar fluoroscopy. The integrated compression screw was tightened. Attention was turned to the distal interlock. This was placed with the guide in the standard technique. AP and lateral images were captured in the or confirming alignment hardware placement. Wounds were irrigated and closed in layers with 0 Vicryl in the deep fascia. 2-0 in the subcutaneous tissue and david in the skin. 0.25% Marcaine with epinephrine was injected into the incision sites for local anesthetic. Sterile dressings were applied. There no immediate complications. Surgical counts were correct. The patient tolerated the procedure well was taken to recovery room for formal radiographs. Postoperative plan. Weightbear as tolerated to the surgical extremity. Work with physical therapy and occupational therapy. Discharge by primary team. Monitor hemoglobin and hematocrit postoperatively may require transfusion if needed. Encourage incentive spirometry. SCDs and Lovenox for DVT prophylaxis. Recommend Lovenox 4 weeks for hip fracture. Follow-up scheduled [facility] in 2 weeks for wound check and repeat x-rays. Keep dressing clean dry and intact. May change of saturated. Complications: none Post-operative Condition: stable Disposition: PACU Plan for aftercare: Weightbear as tolerated. Plan Lovenox 30 mg subcu daily for DVT prophylaxis. Mobilize with physical therapy tomorrow. Discharge when safe for return home when clears PT. calcium and vitamin-D for osteoporosis. Follow up outpatient with PCP regarding resumption of bone density medication treatment. Abstain from smoking.
--- NOTE | 2020-05-28 19:51 | SUR.PHASEI ---
report to INDRA Burgesshome care scheduler. Pt in stable condition upon transferring care
--- NOTE | 2020-05-28 20:03 | PC.NURSE ---
Patient up from PACU @ 1945. Resting in bed w/eyes closed. 2 Drsgs to right hip w/small amount of drainage. No moaning or grimacing noted while resting in bed. Patient medicated with pain meds prior to arrival.
[2020-05-28] MEDS: DOCUSATE 100 MG CAPSULE PO (21:04)
[2020-05-28] MEDS: GABAPENTIN 300 MG CAPSULE 900 MG PO (21:04)
--- NOTE | 2020-05-28 21:46 | PC.NURSE ---
Pt resting at intervals since OR. States discomfort 09/22 IVF NS @ 1254cc/hr infusing into the LFA via pimp w/o incidence. Bulky dsg to right hip CDI Call light w/in reach, bed alarm on for pt safety. Continue w/plan of care.
[2020-05-28] MEDS: OXYCODONE IR 5 MG TABLET PO ×2 (22:18)
[2020-05-29] MEDS: CEFAZOLIN 1 GM/50 ML FROZ.PIGGY IV ×2 (00:35→08:56)
[2020-05-29] MEDS: OXYCODONE IR 5 MG TABLET PO ×2 (01:20→05:55)
[2020-05-29] MEDS: CEFTRIAXONE 1 GM/50 ML FROZ.PIGGY IV ×2 (01:21→12:00)
[2020-05-29] MEDS: SODIUM CHLORIDE 0.9% 1,000 ML 125 ML IV (03:05)
[2020-05-29] MEDS: hydrOXYzine pamoate 25 MG CAPSULE PO (04:29)
[2020-05-29 05:00] VITALS: BP 143/87; PULSE 90; RESP 18; TEMP 36.4; O2SAT 97
[2020-05-29 05:25] LABS: Hematocrit 31.4 % (36-46); Hemoglobin 10.6 g/dL (12.0-16.0); Mean Corpuscular HGB Conc 33.7 % (30-36); Mean Corpuscular Hemoglobin 34.2 PG (26-34); Mean Corpuscular Volume 101.6 fL (80-100); Platelet Count 201 X10^3/uL (150-400); Red Blood Cell Count 3.09 X10^6/uL (4.0-5.2); Red Cell Distribution Width 14.5 % (11.6-14.8); White Blood Cell Count 6.6 X10^3/uL (4.5-11.0)
[2020-05-29 07:34] VITALS: BP 134/77; PULSE 87; RESP 15; TEMP 37.7; O2SAT 96
[2020-05-29 07:50] VITALS: O2SAT 97
[2020-05-29 07:55] VITALS: PULSE 82; RESP 20; O2SAT 95
[2020-05-29] MEDS: OXYCODONE IR 10 MG TABLET PO ×3 (08:54→15:50)
[2020-05-29] MEDS: ENOXAPARIN 30 MG/0.3 ML SYRINGE SUBCUT (08:54)
[2020-05-29] MEDS: LOSARTAN 50 MG TABLET PO (08:55)
[2020-05-29] MEDS: DOCUSATE 100 MG CAPSULE PO (08:55)
[2020-05-29] MEDS: ACETAMINOPHEN 325 MG TABLET 975 MG PO ×2 (08:55→14:26)
[2020-05-29] MEDS: GABAPENTIN 300 MG CAPSULE 900 MG PO ×2 (08:55→14:26)
[2020-05-29] MEDS: SODIUM CHLORIDE 0.9% FLUSH 10 ML IV (08:56)
[2020-05-29] MEDS: INFLUENZA HD VACCINE 0.7 ML SYRINGE IM (09:01)
[2020-05-29 11:18] VITALS: BP 126/49; PULSE 91; RESP 13; TEMP 37.1; O2SAT 93
--- NOTE | 2020-05-29 11:59 | PM.PNPO.1 ---
Subjective Subjective Date Patient Seen: 05/29/20 Time Patient Seen: 11:59 Interval history: Pain was fairly severe last night and early this morning but more [id number] now. No fever or chills. No nausea or vomiting. Patient did well with physical therapy. Patient's ex- stay with her for few days and she has a neighbor available to assist her as well. She has 1 step into her house. Exam Vital Signs (past 8 hours): - 05/29/20 05:00 05/29/20 07:34 05/29/20 07:50 Temperature 97.6 F 99.8 F H Pulse Rate 90 87 Respiratory Rate 18 15 Blood Pressure 143/87 H 134/77 Pulse Oximetry 97 96 97 05/29/20 07:55 Temperature Pulse Rate 82 Respiratory Rate 20 Blood Pressure Pulse Oximetry 95 Oxygen Delivery Method Nasal Cannula Oxygen Flow Rate 2 Narrative Exam Narrative: 69-year-old female resting comfortably in bedside chair in no apparent distress. Mild drainage noted on the dressing otherwise clean and intact. Motor functions intact distal right lower extremity. Sensation grossly intact to light touch distal right lower extremity. Both legs are warm and dry. Objective Labs Result Diagrams: 05/29/20 05:00 05/28/20 06:15 Labs: Laboratory Results - last 24 hr 05/29/20 05:00 WBC 6.6 RBC 3.09 L Hgb 10.6 L Hct 31.4 L MCV 101.6 H MCH 34.2 H MCHC 33.7 RDW 14.5 Plt Count 201 PFSH Medical History Osteoarthritis Osteoporosis Scoliosis Smoker Social History household members: none Smoking Status: Current every day smoker alcohol intake: current Assessment & Plan Post-op Postoperative Procedures: Procedures Operation Date: 05/28/20 17:00 Actual Procedures Side Surgeon p Hip intertroch fx, IMN (cephalomedullary nail) Right Franci Dooley MD Postop day 1 status post intramedullary nail right intertrochanteric fracture. Patient progressing as expected can be discharged home today in stable condition. Weight-bearing as tolerated. Lovenox 30 mg subcu daily for DVT prophylaxis. Calcium and vitamin-D for osteoporosis. Quality VTE Deep Vein Thrombosis/Pulmonary Embolism Present on Admission: No
--- NOTE | 2020-05-29 12:15 | PT.IIE ---
Current Diagnoses Nicotine dependence, unspecified, uncomplicated (05/27/20) Age-related osteoporosis with current pathological fracture, unspecified site, initial encounter for fracture (05/27/20) Fracture of unspecified part of neck of right femur, initial encounter for closed fracture (05/27/20) Fracture of unspecified part of neck of unspecified femur, initial encounter for closed fracture (05/27/20) Surgery Performed Operation Date: 05/28/20 17:00 Actual Procedures p Hip intertroch fx, IMN (cephalomedullary nail)(Right) - Franci Dooley MD Medical History Osteoarthritis Osteoporosis Scoliosis Smoker Physical Therapy Inpatient Evaluation/Re-Eval M1 PT/OT-IP Prior Functional Status Start: 05/29/20 08:41 Freq: NEEDED Status: Active Protocol: Document 05/29/20 12:14 DE (Rec: 05/29/20 12:51 DE [id number]) Medical Review Prior Functional Status Medical History Reviewed Yes Diet/Fluid Consistency Regular Communication WNL. No deficits noted. Able to make needs known. Mobility and Gait Mostly IND for home amb with occasional use of SPC at baseline. Modified IND with use of SPC for community amb. Able to finish grocery shopping with a cart. Activities of Daily Living and IADL's IND for all ADLs and IADLs. Pt does not drive because she doesn't feel comfortable d/t her medication. Taxi is her main mode of transportation. Social History Household Members none Living Arrangements House Number of Floors (Floors) One Floor Number of Stairs To Enter/Railing? 1 platform EMIL through car porch that can fit FWW. Home Environment Standard Height Toilet,Tub/ Shower Home Equipment Four Wheel Walker,Shower Seat with Backrest,Hand Held Shower Employment Status Retired Additional Social History Comment Pt has ex- and neighbors who live closeby and will be available to assist. M2 PT-IP Current Condition Start: 05/29/20 08:41 Freq: NEEDED Status: Active Protocol: Document 05/29/20 12:14 DE (Rec: 05/29/20 12:51 DE [id number]) Physical Therapy Current Condition Current Condition Evaluation Date 05/29/20 Treatment Diagnosis GLF, R hip fracture; Difficulty in walking Onset Date 05/28/20 Weight Bearing Status Weight Bearing Status Weight Bear as Tolerated M3 PT-IP Subjective Start: 05/29/20 08:41 Freq: NEEDED Status: Active Protocol: Document 05/29/20 12:14 DE (Rec: 05/29/20 12:51 DE [id number]) Subjective Physical Therapy Visit Type Type Initial Evaluation Visit Start Time 10:22 Visit Stop Time 10:55 Total Visit Minutes 33 Notes SPT Fan led session under direct supervision of PT Shagufta. Number of CRACKING UNIT OPERATOR Visits 0 Physical Therapy Visit Comments Patient Comments Pt is agreeable to do PT. Therapy Pain Assessment Pain When Pain Assessed Sitting Pain Present Pain Present Pain Reported Location rt hip Intensity 4 Scale Used Numeric (0 - 10) Description Aching Pain Behaviors Calling Out,Facial Grimacing Pain Management Techniques Timing of Activity with Medications M4 PT-IP Mobility and Gait Start: 05/29/20 08:41 Freq: NEEDED Status: Active Protocol: Document 05/29/20 12:14 DE (Rec: 05/29/20 12:51 DE [id number]) PT-Bed Mobility Assessment Supine to Sit Supine to Sit Contact Guard Assistance PT-Transfer Assessment Sit to and From Stand Sit to and from Stand Contact Guard Assistance Equipment Transfer Assistive Device Gait Belt,Front Wheeled Walker Orthotic/Prosthetic Devices or Brace: No Transfers Transfer Destination Chair Transfer Technique Amb with FWW Transfer Ability Level of Assist Contact Guard Assistance Comments Mobility Comments Pt was inclined in bed upon arrival. Pt denied any pain. BP was 88/60 in supine but pt denied any dizziness or lightheadedness. Pt completed supine to sit at R EOB from flat bed by coming up to long- sitting and pivoting to the R side of the bed with SBA. Cues were provided to put her L foot under the R heel to lift up and pivot. Pain was well- controlled during supine to sit. At EOB, BP was 90/60 asymptomatic. Pt needed to urinate and agreed to use BSC. Pt completed stand-pivot transfer to the BSC that was on the L side with FWW CGA. Pt c/o pain when sitting down on BSC. Pt was able to void and manage pericare on her own. Pt then stood up and amb ~120 ft in the hallway and back to the room with FWW CGA. Pt demonstrated step-through gait pattern with decreased stride length and decreased feet clearance. Pt returned to the room and sat down in the chair with FWW CGA. Cues were provided to reach back for the armrests and kick her R foot out. BP in chair after amb was 92/37. After ~2 min, BP was 126/49. Call light placed within reach. Communicated to RN about low BP. Gait Assessment Gait Gait Assistance Required: Contact Guard Assist Distance (Feet) 120 Able to Maintain Weight Bearing Status Yes During Gait Assistive Devices Assistive Device Gait Belt,Front Wheeled Walker Orthotic/Prosthetic Devices or Brace: No Gait Deviations General Gait Pattern Decreased Stride Length, Decreased Feet Clearance Factors Limiting Gait Function Factors Limiting Gait Function Decreased Activity Tolerance, Decreased Strength,Limited Range of Motion,Poor Balance Comments Gait Comments See mobility comments. Stair Climbing Assessment Comments Stair Climbing Comments Not assessed. PT-Balance Assessment Sitting Balance and Reactions Static Sitting Balance Ability Normal Dynamic Sitting Balance Ability Normal Standing Balance and Reactions Static Standing Balance Ability Good Dynamic Standing Balance Ability Good M5 PT-IP Objective Assessments Start: 05/29/20 08:41 Freq: NEEDED Status: Active Protocol: Document 05/29/20 12:14 DE (Rec: 05/29/20 12:51 MT [id number]) Orientation Orientation/Cognition Level of Alertness Alert Orientation Name,Age,Birthday,Month,Date, Year,Day of Week,Place, Situation Language Function Ability No Deficits Noted Safety Awareness Understands Safety Issues Memory Description No Deficits Noted Gross Range of Motion Lower Extremity ROM Assessment Right Impaired Strength Lower Extremity Strength Assessment Right Impaired Coordination Assessment Gross Coordination Gross Coordination WNL Sensation Assessment Sensation Gross Sensation WNL Light Touch Intact Muscle Tone Muscle Tone WNL Yes M6 PT-IP Treatment Start: 05/29/20 08:41 Freq: NEEDED Status: Active Protocol: Document 05/29/20 12:14 DE (Rec: 05/29/20 12:51 DE [id number]) Physical Therapy Treatment Education Education Provided Weight Bearing Status,Safety Other Treatments Other Treatment Performed Provided education on safety, WB status, and role of PT. M7 PT-IP Assessment and Plan Start: 05/29/20 08:41 Freq: NEEDED Status: Active Protocol: Document 05/29/20 12:14 DE (Rec: 05/29/20 12:51 DE [id number]) PT Summary Assessment and Plan Potential Rehabilitation Potential Good Status of Condition at Evaluation Evolving Summary Impairments Pain,ROM,Strength,Balance,Bed Mobility,Transfers,Gait, Activity Tolerance Assessment Summary Cindy is a 69 yo female POD1 s/p intramedullary nail R intertrochanteric hip fracture after GLF. At baseline, pt is mostly IND with occasional SPC use for home amb and modified IND with use of SPC for ccommunity amb. Pt is IND for all ADLs at baseline but does not drive d/t her medication. On evaluation, pt requires CGA for supine to sit , sit <> stand, and amb with use of FWW. Pt is not safe to d/c home at this time. Pt will need to improve activity tolerance and perform 1 platform step with FWW before d/c. PT will continue to assess progress and refine d/c recommendation between home with assistance and HH and SNF . Goals Bed Mobility Goal Independent Transfer Goal Independent,Front Wheeled Walker Gait Goal Independent,Front Wheel Walker Gait Distance 200 Other Goals Perform 1 platform step with FWW SBA Days to Meet Goals 5 Frequency of Treatment Frequency Of Treatment Twice a Day Treatment Plan Physical Therapy Treatment Plan Bed Mobility Training,Transfer Training,Gait Training, Therapeutic Exercise,Balance Retraining,Post Op Education, Discharge Planning,Hot or Cold Pack,Neuromuscular Re-ed Other Recommendations and Next Treatment 1 PF step Focus Recommendations To Nursing Amount of Assist Needed 1 Person Assist Discharge Recommendations PT Discharge Recommendations Home with Assistance,Home Health,SNF Rehab Equipment Needed for Home Before FWW Discharge Transportation Needs at Discharge Private Vehicle Treatment was provided by ROXANNE Farrell and supervised by Shagufta Jones, PT. I personally reviewed this note and agree with its contents.
--- NOTE | 2020-05-29 13:36 | P.DS_ITS ---
History of Present Illness History of Present Illness Chief complaint: GLF Narrative: This is a 69-year-old female who was previously followed by our nurse practitioner and infrequently comes in care. The patient was at her home and tripped over her dog bed and fell on her right side fracturing her right hip. S he has a nondisplaced trochanteric fracture of the right hip and is due to go to the ER for surgical repair this morning. The patient denies any presyncope or syncope. This was clearly a mechanical fall. She did not hit her head. She did not have loss of consciousness and denies any other injuries. She does have a history of chronic back pain and describes this as as severe pain. I was called early this morning stating that her oxygen level had gone down to 88%. It was gradually increased from 2 L nasal cannula to 5 L nasal cannula. The patient was awakened and now her O2 sats on 3 L nasal cannula are 93-95%. A BNP was done that was slightly elevated. An ABG was done which correlated with 88% saturation. A chest x-ray is pending. It is suspected that this is related to chronic lung disease due to chronic smoking. Past medical history: 1. Osteoporosis. Previously on bisphosphonates but not currently 2. Tobacco abuse, still smoking a half to a pack a day. 3. History of alcohol abuse it states in her charge that she has been in recovery since 2001 but she does drink wine. 4. Hypertension 5. Depression 6. COPD 7. Elevated ferritin with the negative hemochromatosis workup in 2017 8. Eczema 9. Hyperlipidemia 10. Scoliosis and chronic back pain 11. Peritonitis, postop previously Patient takes gabapentin and losartan/hydrochlorothiazide as an outpatient, as well as tramadol Allergies: No known drug allergies Past surgical history: Trigger finger repair in 2004 Two thousand ten abdominal wall hernia repair Two thousand one bowel obstruction with surgical intervention unclear if she had a resection Social history: Patient lives alone in an a [facility] Patient is single Patient has a stepdaughter but no other relatives Parents and siblings have Family history: Father with alcoholism, hypertension and dementia Mother with alcoholism, hypertension and dementia Siblings with seizure disorder, depression, stroke, alcohol abuse; sister with addiction problems; sister from a stroke; brother with prostate cancer A health-related behavior Patient drinks wine unclear if this is on a nightly basis Patient smokes a half a pack to a pack is here today Patient does smoke marijuana products No other illicit drugs Review of systems: COVID-19 test was negative Denies fever, cough, shortness of breath, chest pain Patient denies any decreased exercise tolerance but she does not exercise on a regular basis. Patient denies any syncope or presyncope Patient denies any bright red blood per rectum, black tarry stools or hematochezia, no abdominal pain No rashes Discharge Providers Provider Date of admission: 05/27/20 16:39 Discharge Date: 05/29/20 Primary care physician: tali HIGGINS Consults: 05/28/20 11:40 Consult to Respiratory Therapy Evaluate & Treat Comment: Physician Instructions: Evaluate and treat 05/28/20 17:20 Consult to Respiratory Therapy Evaluate & Treat Comment: Physician Instructions: Evaluate and treat 05/28/20 19:50 Consult to Discharge Planning Routine Comment: Consult to Physical Therapy Evaluate & Treat Comment: WBAT Physician Instructions: Evaluate and Treat Consult to Respiratory Therapy Evaluate & Treat Comment: Physician Instructions: Evaluate and treat Discharge provider: Hanh Armijo MD Summary Hospital Course Discharge Diagnosis: Status post mechanical fall with right hip fracture, status surgical repair Hypertension Hypoxemia, improved. Suspect related to atelectasis, scoliosis and tobacco use with probable underlying chronic lung disease Probable COPD Postoperative anemia, mild Hospital Course: 35 minutes is spent with patient and discharge. Discussed the case with orthopedics as well as case management social worker. Patient sustained a mechanical fall at home tripped over her dog bed and was brought to emergency department where she was found to have a right, nondisplaced hip fracture. The patient is a smoker and probably has underlying, undiagnosed, COPD. Her chest x-ray shows possibility of atelectasis versus infiltrate and therefore as CT scan was ordered which showed again atelectasis and infiltrate as well as mucus plugging and bronchial thickening. The patient was treated with ceftriaxone 1 g IV q.12 x3 doses and azithromycin 500 mg IV x1 dose. I think these are radiologic findings and I think her hypoxemia secondary to chronic lung disease and narcotic pain medications. She will go home on azithromycin and will workup lung disease as outpatient. She is currently on room air. She worked with incentive spirometry and had improvement in her oxygenation with this. She was taken to the OR on hospital day 2. And had repair. She is now postop day 1. And is doing well. She was up with physical therapy and is requesting to go home. She is able to toilet and do activities of daily living. Her pain is well controlled with 10 mg of oxycodone. She will also go home with Lovenox 30 mg subcu for 10 days. James Choi from orthopedics will write for this prescription. She does chronically take tramadol for her severe scoliosis and back pain secondary to this. Therefore I would expect that she would need a little bit higher dose of the pain medications. She did not sleep well last night because the bed is uncomfortable and feels she would do better at home. She is currently stable for discharge. Status at Discharge Cognitive/behavioral status at discharge: oriented Functional status at discharge: uses cane/walker Overall status at discharge: patient is progressing back to baseline Exam Vital Signs (past 8 hours): - 05/29/20 07:34 05/29/20 07:50 05/29/20 07:55 Temperature 99.8 F H Pulse Rate 87 82 Respiratory Rate 15 20 Blood Pressure 134/77 Pulse Oximetry 96 97 95 05/29/20 11:18 Temperature 98.7 F Pulse Rate 91 H Respiratory Rate 13 Blood Pressure 126/49 L Pulse Oximetry 93 Oxygen Delivery Method Nasal Cannula Oxygen Flow Rate 0 Narrative Exam Narrative: Afebrile vital signs are stable, O2 sats are 95-97% on room air Patient is doing much better today. She is alert and oriented x3. Her pain is obviously more improved. HEENT: Unremarkable Neck: Supple. No masses Chest: Clear to auscultation with decreased breath sounds on the right based on severe thoracic scoliosis. There is no wheezing, crackles or rhonchi. No egophony. She does have prolonged expiratory phase Cor: Regular rate and rhythm with distant S1-S2 Abdomen: Positive bowel sounds, soft, nontender Extremities: No edema, pulses intact, incision bandage clean and dry Patient with marked scoliosis thoracic and lumbar spine Objective Labs Result Diagrams: 05/29/20 05:00 05/28/20 06:15 Labs: Laboratory Results - last 24 hr 05/29/20 05:00 WBC 6.6 RBC 3.09 L Hgb 10.6 L Hct 31.4 L MCV 101.6 H MCH 34.2 H MCHC 33.7 RDW 14.5 Plt Count 201 PFSH Medical History Osteoarthritis Osteoporosis Scoliosis Smoker Social History household members: none Smoking Status: Current every day smoker alcohol intake: current Discharge Assessment & Plan Assessment and Plan Assessment: 1. Right hip fracture status post surgical repair on 05/28/2020 2. Hypertension well controlled 3. Hypoxemia suspect COPD and underlying lung disease, improved 4. Possible pneumonia being treated with azithromycin and ceftriaxone. Patient had chest x-ray which was inconclusive as well as CT scan which showed no pulmonary embolus but possible pneumonia. I doubt that this is a true p neumonia. Patient without leukocytosis or significant cough or shortness of breath or chest pain or fever. I think it is more a radiologic finding in somebody with severe scoliosis and chronic tobacco abuse and probable underlying lung disease. Plan of Treatment: Discharge to home with home physical therapy and occupational therapy. Follow-up with orthopedics as scheduled Follow-up with Tali HIGGINS next week Continue outpatient medications of losartan hydrochlorothiazide and gabapentin. She will have 3 days of 500 mg of azithromycin and she will be placed on oxycodone 5-10 mg p.o. q.4 hours as needed. She will hold the tramadol while she is taking the oxycodone. Patient will also go home on Colace 100 mg twice daily to help with bowel movements Discussed with James Choi and patient will go home on Lovenox 30 mg subcu for the next 10 days. He will send this prescription in. Discharge Plan Discharge Plan Patient Disposition: Home Health Service Discharge orders & Medications Prescriptions: New docusate sodium [DOK] 100 mg Capsule 100 mg PO BID Qty: 30 RF: 0 oxycodone 10 mg Tablet 10 mg PO Q3HR PRN (Reason: Pain, Severe (7-10)) Qty: 40 RF: 0 azithromycin 500 mg tablet 500 mg PO DAILY 3 Days Qty: 3 RF: 0 Continued tramadol 50 mg tablet 50 mg PO BID PRN (Reason: Pain (Scale Score 4-6)) RF: 0 gabapentin 300 mg capsule 900 mg PO TID RF: 0 losartan-hydrochlorothiazide 50-12.5 mg tablet 50 tab PO DAILY RF: 0 Follow up/Referrals: Amparo Felder ARNP [Primary Care Provider] - Diet/Activity/Treatments Diet: Diet as Tolerated Visit Report/Discharge Packet Instructions: DI for Prescription Opioid Use Stand Alone Forms: Surgery Discharge Discharge Data Primary Care Provider: Amparo Felder VTE Deep Vein Thrombosis/Pulmonary Embolism Present on Admission: No
[2020-05-29] MEDS: AZITHROMYCIN 250 MG TABLET 500 MG PO (14:13)
--- NOTE | 2020-05-29 15:03 | CM.DPC ---
DCP Cont: Shagufta, physical therapist, stated, patient should be able to go home, working well with therapy. Originally discussed going to skilled rehab. Dr. Armijo came by, and signed a face to face for home health. Patient was given list of home health agencies, has no preference. [facility] is on calendar for this week. Contacted Clara at [facility]. Updated her on referral and that patient is being discharged home today. Let her know that patient will need nursing, P.T, O.T. Clara indicated, she should be able to have nurse come to her home tomorrow. Faxed over face sheet, face to face, discharge summary, and home health orders over to [facility]. Ordered her a FWW per P.T's request. P: Patient is to go home with [facility] today. Magaly Mcbride RN/Facilities Director
--- NOTE | 2020-05-29 15:51 | PT.IPTN ---
Current Diagnoses Nicotine dependence, unspecified, uncomplicated (05/27/20) Age-related osteoporosis with current pathological fracture, unspecified site, initial encounter for fracture (05/27/20) Fracture of unspecified part of neck of right femur, initial encounter for closed fracture (05/27/20) Fracture of unspecified part of neck of unspecified femur, initial encounter for closed fracture (05/27/20) Surgery Performed Operation Date: 05/28/20 17:00 Actual Procedures p Hip intertroch fx, IMN (cephalomedullary nail)(Right) - Franci Dooley MD Physical Therapy Treatment Note M2 PT-IP Current Condition Start: 05/29/20 08:41 Freq: NEEDED Status: Active Protocol: Document 05/29/20 12:14 DE (Rec: 05/29/20 12:51 DE [id number]) Physical Therapy Current Condition Current Condition Evaluation Date 05/29/20 Treatment Diagnosis GLF, R hip fracture; Difficulty in walking Onset Date 05/28/20 Weight Bearing Status Weight Bearing Status Weight Bear as Tolerated M3 PT-IP Subjective Start: 05/29/20 08:41 Freq: NEEDED Status: Active Protocol: Document 05/29/20 15:10 DE (Rec: 05/29/20 15:40 DE [id number]) Subjective Physical Therapy Visit Type Type Treatment Note Visit Start Time 14:15 Visit Stop Time 15:03 Total Visit Minutes 48 Notes SPT Fan led session under direct supervision of PT Shagufta. Number of DOCUMENT RESTORER Visits 0 Physical Therapy Visit Comments Patient Comments Pt is agreeable to do PT. Therapy Pain Assessment Pain When Pain Assessed Sitting Pain Present Pain Present Pain Reported Location rt hip Intensity 4 Scale Used Numeric (0 - 10) Description Aching Pain Behaviors Calling Out,Facial Grimacing Pain Management Techniques Timing of Activity with Medications M4 PT-IP Mobility and Gait Start: 05/29/20 08:41 Freq: NEEDED Status: Active Protocol: Document 05/29/20 15:10 DE (Rec: 05/29/20 15:40 DE [id number]) PT-Transfer Assessment Sit to and From Stand Sit to and from Stand Contact Guard Assistance Equipment Transfer Assistive Device Gait Belt,Front Wheeled Walker Orthotic/Prosthetic Devices or Brace: No Transfers Transfer Destination Chair Transfer Technique Amb with FWW Transfer Ability Level of Assist Contact Guard Assistance Comments Mobility Comments Pt was sitting in chair upon arrival. Pt completed sit to stand with FWW CGA. Pt amb ~75 ft in the hallway to the stairs with 4WW CGA. Pt demonstrates step-through gait pattern with shorter step length on the L, decreased feet clearance, and limping. Pt performed 1 platform step up and down x3 with FWW CGA. Cues were provided to lead with the L foot for ascending and to lead with the R foot for descending. Pt did not demonstrate any LOB. Pt then amb ~75 ft back to the room and sat down on the chair with FWW CGA. Pt stood up again and amb to the toilet to make sure she can get to and out of toilet. Pt performed stand to sit on toilet with FWW, ues of L hand on toilet, and CGA. After voiding and managing pericare on her own, pt stood up with L handrail, FWW, and CGA. Pt amb to the chair and sat down with FWW CGA. Call light placed within reach. Gait Assessment Gait Gait Assistance Required: Contact Guard Assist Distance (Feet) 150 Able to Maintain Weight Bearing Status Yes During Gait Assistive Devices Assistive Device Gait Belt,Front Wheeled Walker Orthotic/Prosthetic Devices or Brace: No Gait Deviations General Gait Pattern Decreased Stride Length, Decreased Feet Clearance Factors Limiting Gait Function Factors Limiting Gait Function Decreased Activity Tolerance, Decreased Strength,Limited Range of Motion,Poor Balance Comments Gait Comments See mobility comments. Stair Climbing Assessment Evaluation Level of Assist On Stairs Contact Guard Assistance Devices Stair Climbing Assistive Devices Front Wheel Walker Technique/Endurance Stair Climbing Direction Ascend and Descend Stair Climbing Technique Step to Step Number of Steps Climbed 1 Stair Climbing Set # Repetitions (reps) 1 Comments Stair Climbing Comments See mobility comments. PT-Balance Assessment Sitting Balance and Reactions Static Sitting Balance Ability Normal Dynamic Sitting Balance Ability Normal Standing Balance and Reactions Static Standing Balance Ability Good Dynamic Standing Balance Ability Good M5 PT-IP Objective Assessments Start: 05/29/20 08:41 Freq: NEEDED Status: Active Protocol: Document 05/29/20 12:14 DE (Rec: 05/29/20 12:51 DE [id number]) Orientation Orientation/Cognition Level of Alertness Alert Orientation Name,Age,Birthday,Month,Date, Year,Day of Week,Place, Situation Language Function Ability No Deficits Noted Safety Awareness Understands Safety Issues Memory Description No Deficits Noted Gross Range of Motion Lower Extremity ROM Assessment Right Impaired Strength Lower Extremity Strength Assessment Right Impaired Coordination Assessment Gross Coordination Gross Coordination WNL Sensation Assessment Sensation Gross Sensation WNL Light Touch Intact Muscle Tone Muscle Tone WNL Yes M6 PT-IP Treatment Start: 05/29/20 08:41 Freq: NEEDED Status: Active Protocol: Document 05/29/20 15:10 DE (Rec: 05/29/20 15:40 DE [id number]) Physical Therapy Treatment Education Education Provided Weight Bearing Status,Safety Equipment Issued Equipment Type and Company FWW for home use supplied by [employer]. Other Treatments Other Treatment Performed Provided education on safety, self-care, and role of PT. M7 PT-IP Assessment and Plan Start: 05/29/20 08:41 Freq: NEEDED Status: Active Protocol: Document 05/29/20 15:10 DE (Rec: 05/29/20 15:40 DE [id number]) PT Summary Assessment and Plan Potential Rehabilitation Potential Good Status of Condition at Evaluation Evolving Summary Impairments Pain,ROM,Strength,Balance,Bed Mobility,Transfers,Gait, Activity Tolerance Assessment Summary Pt tolerated treatment well. Pt was able to amb ~150 ft and perform 1 platform step x3 with FWW CGA without any LOB. Pt tried both FWW and 4WW and agreed that she would be safer with FWW. FWW was dispensed for home use in this visit. PT anticipates pt will be safe to d/c home with assistance once medically cleared. Pt will benefit from HH to improve hip ROM and strength as well as balance and activity tolerance. Frequency of Treatment Frequency Of Treatment Discharge Recommendations To Nursing Amount of Assist Needed 1 Person Assist Discharge Recommendations PT Discharge Recommendations Home with Assistance,Home Health Equipment Needed for Home Before FWW Discharge Transportation Needs at Discharge Private Vehicle Treatment was provided by Fna Christine, SPT and supervised by Shagufta Jones, PT. I personally reviewed this note and agree with its contents.
--- NOTE | 2020-05-29 16:36 | PC.NURSE ---
Discharge/Evening SHift Note- Patient D/C'ed home. DIscharge instructions and educatuion reviewed with patient and signed. IV line removed and bandage applied. Patient dressed self and packed up all personal items. Patient taken to private car via wheelchair with all personal items at 1615.
== END 2020-05-29 16:15 | disposition home health service (06) | DRG 481 ==
LOC: ED 16:38 → AC 16:40
PROVIDERS: Orthopaedic Surgery Foot and Ankle Surgery; Admitting Provider Family Medicine; Emergency Provider Emergency Medicine; PCP Nurse Practitioner Family; Referring Provider Internal Medicine; Visit Provider Family Medicine
PROC: 0QH606Z Insertion of Intramedullary Internal Fixation Device into Right Upper Femur, Open Approach (ICD-10-PCS; CPT 27245; principal; 2020-05-28 17:00)
DX: M80.051A Age-related osteoporosis with current pathological fracture, right femur, initial encounter for fracture (principal); J98.11 Atelectasis; J44.9 Chronic obstructive pulmonary disease, unspecified; M41.9 Scoliosis, unspecified; I10 Essential (primary) hypertension; F17.210 Nicotine dependence, cigarettes, uncomplicated; Z20.828 Contact with and (suspected) exposure to other viral communicable diseases; W18.30XA Fall on same level, unspecified, initial encounter
CPT/HCPCS: 36415; 36600; 71045; 71275; 72192; 73502; 76000; 80048; 80053; 82805; 82962; 83880; 84484; 85025; 85027; 87635; 90471; 90662; 93005; 93010; 96361; 96374; 96375; 97116; 97162; 97530; 97535; 99284; J1170; J1650; J2060; J2250; J2405; J2704; J3010; Q9967

== ENCOUNTER → 2020-08-27 16:16 | Outpatient (CLI) | payer MEDICARE, OTHER, SELFPAY ==
[2020-05-27 20:03] VITALS: BMI 19.5
[2020-08-27] MEDS: COVID-19 VACC, Ad26(JANSSEN)/PF 0.5 ML IM (16:34)
== END ==
PROVIDERS: PCP Nurse Practitioner Family; Visit Provider Internal Medicine
DX: Z23 Encounter for immunization (principal)
CPT/HCPCS: 0031A; 91303

== ENCOUNTER → 2021-06-06 14:23 | Outpatient (CLI) | payer MEDICARE, OTHER, SELFPAY ==
[2020-05-27 20:03] VITALS: BMI 19.5
--- NOTE | 2021-06-06 14:27 | DI.MG.S_ITS ---
BILATERAL DIGITAL SCREENING MAMMOGRAM 3D/2D WITH CAD: 06/06/2021 CLINICAL: Routine screening. Comparison is made to exams dated: 04/08/2019 mammogram, 02/18/2017 mammogram - [facility], and 02/16/2013 mammogram - [facility]. The tissue of both breasts is heterogeneously dense. This may lower the sensitivity of mammography. Current study was also evaluated with a Computer Aided Detection (CAD) system. No significant masses, calcifications, or other findings are seen in either breast. There has been no significant interval change. IMPRESSION: NEGATIVE There is no mammographic evidence of malignancy. A 1 year screening mammogram is recommended. This exam was interpreted at Station ID: [id number]. NOTE: For mammograms, a report in lay terms will be sent to the patient. Approximately 15% of breast malignancies will not be visualized mammographically. In the management of a palpable breast mass, a negative mammogram must not discourage biopsy of a clinically suspicious lesion. Electronically Signed By: Sukumar Barth M.D., jr/anish:06/06/2021 15:07:27 letter sent: Normal Exam ACR BI-RADS Category 1: Negative [id number]
== END ==
PROVIDERS: PCP Internal Medicine; Referring Provider Internal Medicine; Visit Provider Internal Medicine
DX: M81.0 Age-related osteoporosis without current pathological fracture (principal); Z12.31 Encounter for screening mammogram for malignant neoplasm of breast; Z78.0 Asymptomatic menopausal state; Z82.62 Family history of osteoporosis; Z72.0 Tobacco use
CPT/HCPCS: 77063; 77067; 77080; 77081

== ENCOUNTER 2021-07-02 10:06 | Day surgery (SDC) | payer MEDICARE, OTHER, SELFPAY ==
[2020-05-27 20:03] VITALS: BMI 19.5
[2021-07-02 10:21] VITALS: BP 171/93; PULSE 84; RESP 16; TEMP 36.7; O2SAT 97; BMI 21.4
[2021-07-02] MEDS: PROPARACAINE 0.5% OPHTH SOL 2 DROPS EYE-OP (10:33)
[2021-07-02] MEDS: CATARACT EYE COMPOUND (10 DROPS/SYRINGE) 3 DROPS EYE-OP ×3 (10:33→10:45)
[2021-07-02 10:48] LABS: COVID19 -Nasal RAPID Negative (Negative)
--- NOTE | 2021-07-02 11:40 | SUR.OPER ---
Supine on eye stretcher, head on extension cradle secured with tape. Arms tucked at sides with blanket. Pillow under knees.
[2021-07-02] MEDS: HYALURONATE SODIUM 30 MG-10 MG/ML SYRINGES 1 BOX INTRAOCULA (11:45)
[2021-07-02] MEDS: TRIAMCINOLONE 50 MG/5 ML VIAL INJ (11:46)
[2021-07-02] MEDS: MOXIFLOXACIN INJ 4 MG/0.8 ML VIAL 0.5 MG EYE-OP (11:46)
[2021-07-02] MEDS: PHENYLEPHRINE/LIDOCAINE VIAL (OR) 0.2 ML EYE-OP (11:46)
[2021-07-02] MEDS: TETRACAINE 0.5% OPHTH DROPS 4 ML 2 DROPS EYE-OP (11:47)
[2021-07-02] MEDS: BALANCED SALT IRRIG SOLN NO.2 500 ML, EPINEPHrine 1 MG IRR (11:47)
[2021-07-02] MEDS: LIDOCAINE 2% (GLYDO) 6 ML GEL TOP (11:48)
[2021-07-02 11:58] VITALS: BP 156/90; PULSE 85; RESP 16; TEMP 36.9; O2SAT 96
--- NOTE | 2021-07-02 12:28 | SUR.PHASEII ---
Pt ready to go, pt refused additional po fluids or any food, I just want to go home. [facility] called, pt dressed, left unit on stable condition.
[2021-07-02 12:37] VITALS: BP 155/90; PULSE 76; RESP 20; TEMP 36.6; O2SAT 94
--- NOTE | 2021-07-02 12:42 | SUR.PHASEII ---
Per Raysa BURRELL, Dr Elise and Dr. Agudelo aware of pt using [employer] and will be by herself.
--- NOTE | 2021-07-02 13:24 | P.OP.PRE_ITS ---
Pre-operative Note Interval Note History & Physical reviewed/Exam performed by Physician: Yes Changes to H&P: No Addendum Addendum Note: There are no non surgical alternatives for the patients condition. Deteriora tion of the patient's condition is expected. There is the possibility that delay results in more complex future surgery.
--- NOTE | 2021-07-02 13:25 | P.OP_ITS ---
Operative Date/Time/Diagnoses Pre-op diagnosis: Nuclear cataract right eye Procedure & Clinicians Procedure: Cataract Surgery Same procedure as scheduled: Yes Surgeon: Warner Agudelo Anesthesia Type: MAC +/- and Sedation Operative Notes Procedure in detail: Patient brought to the operating suite. Tetracaine drops placed in the right eye. Marking instrument was used to jordan the vertical and horizontal meridians. Patient was prepped and draped in sterile manner. Wire lid speculum was placed in the eye. Betadine drops were placed on the eye. This was irrigated. Lidocaine jelly was placed on the eye. A paracentesis port was created with a side-port blade. 0.1 mL 1% preservative free lidocaine was injected into the anterior chamber. The anterior chamber was deepened with viscoelastic. 2.6 mm keratome was used to create a temporal clear corneal incision. Cystotome and Utrata forceps were used to create continuous tear capsulorrhexis. Balanced salt solution was used to hydro dissect the nucleus. The phacoemulsification handpiece was inserted and the nucleus was removed using the stop and chop technique. The irrigation aspiration handpiece was inserted and the remaining cortex was removed. Anterior chamber was deepened with viscoelastic. An Glez [id number] intraocular lens with a power of 20.5 was injected into the capsular bag. Irrigation aspiration handpiece was inserted and the remaining viscoelastic was removed. The lens was rotated to the 90 degree meridian. Incision was hydrated with balanced salt solution and found to be leak free with pressure with Weck- Rena sponges. 0.1 mL Vigamox injected anterior chamber. 0.3 mL Kenalog 10 mg was injected subconjunctivally. Lid speculum was removed. The patient left the operating room in excellent condition. Complications: none Post-operative Condition: stable Disposition: same day surgery
== END 2021-07-02 12:35 | disposition home or self-care (01) ==
LOC: OR 10:08
PROVIDERS: PCP Internal Medicine; Referring Provider Ophthalmology; Visit Provider Ophthalmology
PROC: (CPT 66984; principal; 2021-07-02 12:15)
DX: H25.11 Age-related nuclear cataract, right eye (principal); I10 Essential (primary) hypertension; Z20.822 Contact with and (suspected) exposure to COVID-19
CPT/HCPCS: 66984; 87635; J0171; J2250; J3301; V2787

== ENCOUNTER → 2021-07-15 09:51 | Outpatient (CLI) | payer MEDICARE, OTHER, SELFPAY ==
[2020-05-27 20:03] VITALS: BMI 19.5
[2021-07-15 11:35] LABS: COVID19 -Nasal RAPID Negative (Negative)
== END ==
PROVIDERS: PCP Internal Medicine; Visit Provider Family Medicine Sleep Medicine
DX: Z20.822 Contact with and (suspected) exposure to COVID-19 (principal)
CPT/HCPCS: 87635; C9803

== ENCOUNTER 2021-07-16 06:37 | Day surgery (SDC) | payer MEDICARE, OTHER, SELFPAY ==
[2020-05-27 20:03] VITALS: BMI 19.5
[2021-07-16] MEDS: CATARACT EYE COMPOUND (10 DROPS/SYRINGE) 3 DROPS EYE-OP (07:05)
[2021-07-16] MEDS: PROPARACAINE 0.5% OPHTH SOL 2 DROPS EYE-OP (07:05)
[2021-07-16 07:10] VITALS: BP 141/85; PULSE 96; RESP 16; TEMP 37; O2SAT 95; BMI 20.9
--- NOTE | 2021-07-16 08:04 | P.OP.PRE_ITS ---
Pre-operative Note Interval Note History & Physical reviewed/Exam performed by Physician: Yes Changes to H&P: No Addendum Addendum Note: There are no non surgical alternatives for the patient's condition. Deteriora rtion of the patient's condition is expected without treatment. Delay in treatment may result in morecomplex future surgery.
--- NOTE | 2021-07-16 08:06 | P.OP_ITS ---
Operative Date/Time/Diagnoses Pre-op diagnosis: Nuclear Cataract Left eye Post-op diagnosis: same Procedure & Clinicians Same procedure as scheduled: Yes Surgeon: Warner Agudelo Anesthesia Type: MAC +/- and Sedation Operative Notes Procedure in detail: Patient brought to the operating suite. Tetracaine drops placed in the left eye.Marking instrument was used to jordan the vertical and horizontal meridians. Patient was prepped and draped in sterile manner. Wire lid speculum was placed in the eye. Betadine drops were placed on the eye. This was irrigated. Lidoc yusef jelly was placed on the eye. A paracentesis port was created with a side- port blade. 0.1 mL 1% preservative free lidocaine was injected into the anterior chamber. The anterior chamber was deepened with viscoelastic. 2.6 mm keratome was used to create a temporal clear corneal incision. Cystotome and Utrata forceps were used to create continuous tear capsulorrhexis. Balanced salt solution was used to hydro dissect the nucleus. The phacoemulsification handpiece was inserted and the nucleus was removed using the stop and chop technique. The irrigation aspiration handpiece was inserted and the remaining cortex was removed. Anterior chamber was deepened with viscoelastic. An Glez [id number] intraocular lens with a power of 20.5 was injected into the capsular bag. Irrigation aspiration handpiece was inserted and the remaining viscoelastic was removed. the lens was rotated to the 90 degree meridan. Incision was hydrated with balanced salt solution and found to be leak free with pressure with Weck- Rena sponges. 0.1 mL Vigamox injected anterior chamber. 0.3 mL Kenalog 10 mg was injected subconjunctivally. Lid speculum was removed. The patient left the operating room in excellent condition. Complications: none Post-operative Condition: stable Disposition: same day surgery
--- NOTE | 2021-07-16 08:21 | SUR.OPER ---
Supine on eye stretcher, head on extension cradle secured with tape. Arms tucked at sides with blanket. Pillow under knees.
[2021-07-16] MEDS: TETRACAINE 0.5% OPHTH DROPS 4 ML 2 DROPS EYE-OP (08:25)
[2021-07-16] MEDS: LIDOCAINE 2% (GLYDO) 6 ML GEL TOP (08:26)
[2021-07-16] MEDS: HYALURONATE SODIUM 30 MG-10 MG/ML SYRINGES 1 BOX INTRAOCULA (08:26)
[2021-07-16] MEDS: MOXIFLOXACIN INJ 4 MG/0.8 ML VIAL 0.5 MG EYE-OP (08:26)
[2021-07-16] MEDS: PHENYLEPHRINE/LIDOCAINE VIAL (OR) 0.2 ML EYE-OP (08:26)
[2021-07-16] MEDS: TRIAMCINOLONE 50 MG/5 ML VIAL INJ (08:27)
[2021-07-16] MEDS: BALANCED SALT IRRIG SOLN NO.2 500 ML, EPINEPHrine 1 MG IRR (08:27)
[2021-07-16 08:41] VITALS: BP 157/89; PULSE 93; RESP 18; TEMP 37.2; O2SAT 96
== END 2021-07-16 08:55 | disposition home or self-care (01) ==
PROVIDERS: PCP Internal Medicine; Referring Provider Ophthalmology; Visit Provider Ophthalmology
PROC: (CPT 66984; principal; 2021-07-16 08:15)
DX: H25.12 Age-related nuclear cataract, left eye (principal); I10 Essential (primary) hypertension
CPT/HCPCS: 66984; J0171; J2250; J3301; V2787

== ENCOUNTER → 2021-11-05 14:00 | Outpatient (CLI) | payer MEDICARE, OTHER, SELFPAY ==
[2020-05-27 20:03] VITALS: BMI 19.5
--- NOTE | 2021-11-05 14:06 | DI.CT.S_ITS ---
PROCEDURE: CT CHEST WO CON INDICATIONS: Chronic cough TECHNIQUE: Noncontrast 5 mm thick sections acquired from the pulmonary apices to the posterior costophrenic angles. 1 mm lung window, 5 mm thick coronal and sagittal and 7 mm axial MIP reformats were then acquired. For radiation dose reduction, the following was used: automated exposure control, adjustment of mA and/or kV according to patient size. COMPARISON: [facility], CT, CT ANGIO CHEST PE PROTOCOL, 05/28/2020, 9:45. FINDINGS: Image quality: Excellent. Lungs and pleura: No acute air space opacities. Subsegmental scarring within the lingula and right middle lobe medial segments. No pleural effusions or pneumothorax. Central and peripheral airways are patent and normal in caliber. Mediastinum: Heart size is normal. There is mild calcification of the coronary vasculature. No pericardial effusion. No mediastinal adenopathy by size criteria. Thoracic aorta and central pulmonary arteries are normal in size. Esophagus is normal in caliber. No hiatal hernia. Bones and chest wall: No suspicious bony lesions severe rightward curvature of the lower thoracic spine. No vertebral body compression fractures. No axillary or supraclavicular adenopathy by size criteria. Thyroid gland is within normal limits on noncontrast imaging . Abdomen: Visualized upper abdominal solid organs and bowel loops appear normal in the absence of contrast. IMPRESSION: 1. Lingular and right middle lobe scarring, possibly post infectious or secondary to chronic aspiration. 2. Coronary artery disease. 3. Thoracic spine curvature as above. Dictated by: Petty Angeles M.D. on 11/05/2021 at 15:05 Approved by: Petty Angeles M.D. on 11/05/2021 at 16:49
== END ==
PROVIDERS: PCP Internal Medicine; Referring Provider Internal Medicine; Visit Provider Internal Medicine
DX: F17.210 Nicotine dependence, cigarettes, uncomplicated (principal); R06.02 Shortness of breath; R05.3 Chronic cough; E87.1 Hypo-osmolality and hyponatremia; I25.10 Atherosclerotic heart disease of native coronary artery without angina pectoris; J98.4 Other disorders of lung
CPT/HCPCS: 71250